=== PATIENT | male | born 1940 | race Caucasian/White ===

== ENCOUNTER 2016-09-04 17:57 | Inpatient (IN) | payer MEDICARE, OTHER ==
[2016-09-04] MEDS ORDERED: NS 0.9% 1000 ML* 3,000 ML IV ONE (18:28)
[2016-09-04 18:35] LABS: Hematocrit 35 % (42-52); Hemoglobin 11.4 g/dl (14.0-18.0); Mean Corpuscular HGB Conc 33 g/dl (31-36); Mean Corpuscular Hemoglobin 30 pg (27-31); Mean Corpuscular Volume 93 fL (80-94); Mean Platelet Volume 9 um3 (7.4-10.4); Red Cell Distribution Width 16 % (10.5-15)
[2016-09-04 18:56] LABS: Albumin 3.7 g/dL (3.2-5.2); BUN/Creatinine Ratio 26.4 (8-20); Calcium 8.9 mg/dL (8.6-10.3); EGFR African American 104.2 (>60); Globulin 3.1 g/dL (2-4); Potassium 4.2 mmol/L (3.5-5.0); Total Bilirubin 1.1 mg/dL (0.2-1.0); Total Protein 6.8 g/dL (6.4-8.9)
[2016-09-04 18:57] LABS: Troponin I 0.03 ng/mL (<0.04)
--- NOTE | 2016-09-04 19:24 | RAD ---
Indication: Shortness of breath, cough, question pneumonia. History of cardiac disease with previous bypass and ablation. History of bronchitis. Comparison: July 01, 2016 Technique: Upright AP 1858 hours Report: Chronic moderate elevation of the RIGHT hemidiaphragm with associated basilar atelectasis. Mild prominence of the interstitial markings. Probable small pleural effusions. Negative for pneumothorax. Median sternotomy wires, mediastinal vascular clips, RIGHT atrial and RIGHT ventricular level pacemaker leads. Cardiomegaly. Prominent ill-defined central pulmonary vasculature. IMPRESSION: The constellation of findings is most consistent with pulmonary vascular congestion and interstitial edema. Probable small associated pleural effusions.
[2016-09-04 19:47] LABS: C Reactive Protein 184.48 mg/L (< 5.00)
[2016-09-04] MEDS ORDERED: Bumetanide IV* 0.25 MG/ML 4 ML VIAL SLOW PUSH ONE (20:16)
[2016-09-04] MEDS ORDERED: Aspirin Low Dose CHEW TAB* 81 MG PO ONE (20:17)
--- NOTE | 2016-09-04 21:03 | ED ---
Neil Rg Erika, scribed for Santiago Kyle MD on 09/04/16 at 1903 . Shortness of Breath - HPI Summary HPI Summary: Patient is a 76-year-old male presenting to the ED with a CC of SOB. Patient reports that a successful cardiac ablation for ventricular tachycardia in May 2016 at [facility]. He reports he has had the SOB since then, and that it has gradually worsened. SOB later became aggravated by exertion. He does not note orthopnea. Patient also reports a decreased appetite for the past 3 months. He states he was recently treated for bronchitis with doxycycline for 10 days after he had the SOB associated with chest tightness, but he currently does not have the chest tightness. He states he has been able to cough up some phlegm. Pt denies abdominal pain and pedal edema, and notes diaphoresis and nasal discharge unchanged from baseline. Pt also reports an ejection fracture of 25%. He states he has a cardiac pacemaker and defibrillator - has not fired since the ablation. He states he does not use home O2. He denies Hx COPD, sleep apnea. Hx diabetes, HTN, cardiomyopathy. Denies Hx hyperlipidemia. He reports Hx CABG 1993 and cardiac catheterization in 2016. He denies FHx CHF. Pt is a former smoker - quit 40+ years ago, and states he does not drink. - History of Current Complaint Chief Complaint: EDShortnessOfBreath Hx Obtained From: Patient Onset/Duration: Gradual Onset, Lasting Weeks, Worse Since Timing: Constant Current Severity: Moderate Dyspnea At: Exertion Alleviating Factors: Nothing Associated Signs & Symptoms: Cough (Productive) - Allergy/Home Medications Allergies/Adverse Reactions: Allergies Allergy/AdvReac Type Severity Reaction Status Date / Time Acetaminophen [From Excedrin] AdvReac Unknown Verified 09/04/16 18:18 Reaction Details Aspirin [From Excedrin] AdvReac Unknown Verified 09/04/16 18:18 Reaction Details Atorvastatin [From Lipitor] AdvReac Unknown Verified 09/04/16 19:28 Reaction Details Caffeine [From Excedrin] AdvReac Unknown Verified 09/04/16 18:18 Reaction Details Charcoal AdvReac Unknown Verified 09/04/16 19:28 Reaction Details Insulin AdvReac See Comment Verified 09/04/16 18:18 Lisinopril AdvReac Unknown Verified 09/04/16 19:28 Reaction Details Home Medications: Home Medications Amoxicillin/Clavulanate TAB* [Augmentin TAB 875*] 875 mg PO BID 09/04/16 [ History Confirmed 09/04/16] Metoprolol Succinate XL TAB* [Toprol XL TAB*] 100 mg PO DAILY 09/04/16 [History Confirmed 09/04/16] Multivitamins/Minerals TAB* [Theragran/minerals TAB*] 1 tab PO DAILY 09/04/16 [ History Confirmed 09/04/16] Potassium Chloride [K-Tab] 8 meq PO DAILY 09/04/16 [History Confirmed 09/04/16] metFORMIN* [Glucophage*] 500 mg PO QAM 09/04/16 [History Confirmed 09/04/16] PMH/Surg Hx/FS Hx/Imm Hx Endocrine/Hematology History: Reports: Hx Diabetes, Hx Thyroid Disease - hypothyroidism Cardiovascular History: Reports: Hx Angina, Hx Atrial Fibrillation, Hx Auto Implanted Cardiovert Defib, Hx Coronary Artery Disease, Hx Hypercholesterolemia , Hx Pacemaker/ICD, Other Cardiovascular Problems/Disorders - Cardiomyopathy, V tach Denies: Hx Hypertension Respiratory History: Denies: Hx Asthma, Hx Chronic Obstructive Pulmonary Disease (COPD) Sensory History: Reports: Hx Contacts or Glasses, Hx Hearing Problem Opthamlomology History: Reports: Hx Contacts or Glasses Psychiatric History: Reports: Hx Anxiety, Hx Post Traumatic Stress Disorder - Surgical History Surgery Procedure, Year, and Place: CABG at age 54, internal defibrillator 2009 Hx Anesthesia Reactions: No Infectious Disease History: No Infectious Disease History: Denies: Hx Clostridium Difficile, Hx Hepatitis, Hx Human Immunodeficiency Virus (HIV), Hx of Known/Suspected MRSA, Hx Shingles, Hx Tuberculosis, History Other Infectious Disease, Traveled Outside the [place] in Last 30 Days - Family History Known Family History: Positive: Cardiac Disease, Hypertension, Diabetes - Social History Alcohol Use: None Hx Substance Use: No Substance Use Type: Reports: None Hx Tobacco Use: Yes Smoking Status (MU): Former Smoker Review of Systems Positive: Skin Diaphoresis - baseline Positive: Nasal Discharge - baseline Positive: Shortness Of Breath, Cough - phlegm Positive: Other - decreased appetite. Negative: Abdominal Pain Negative: Edema All Other Systems Reviewed And Are Negative: Yes Physical Exam - Summary Physical Exam Summary: The patient is well-nourished in no acute distress and in no acute pain. The skin is warm and dry and skin color reflects adequate perfusion. Skin turgor is slightly decreased. HEENT: The head is normocephalic and atraumatic. The pupils are equal and reactive. The conjunctivae are clear and without drainage. Nares are patent and without drainage. Mouth reveals dry mucous membranes and the throat is without erythema and exudate. The external ears are intact. The ear canals are patent and without drainage. The tympanic membranes are intact. Neck is supple with full range of motion and non-tender. There are no carotid bruits. There is no neck vein distension. Respiratory: Chest is non-tender. There are crackles in the left base and diminished breath sounds in the right base. Cardiovascular: Heart is regular rate and rhythm. There is no murmur or rub auscultated. There is no peripheral edema and pulses are symmetrical and equal. Abdomen: The abdomen is soft and non-tender. There are normal bowel sounds heard in all four quadrants and there is no organomegaly palpated. Musculoskeletal: There is no back pain noted. Extremities are non-tender with full range of motion. There is good capillary refill. There is no peripheral edema or calf tenderness elicited. Neurological: Patient is alert and oriented to person, place and time. The patient has symmetrical motor strength in all four extremities. Cranial nerves are grossly intact. Psychiatric: The patient has an appropriate affect and does not exhibit any anxiety or depression. Triage Information Reviewed: Yes Vital Signs On Initial Exam: Initial Vitals Temp Pulse Resp BP Pulse Ox 98.6 F 60 16 141/77 97 09/04/16 18:15 09/04/16 18:15 09/04/16 18:15 09/04/16 18:15 09/04/16 18:15 Vital Signs Reviewed: Yes Diagnostics - Vital Signs Vital Signs Temp Pulse Resp BP Pulse Ox 09/04/16 18:15 98.6 F 60 16 141/77 97 - Laboratory Lab Results: Lab Results 09/04/16 Range/Units 18:25 WBC 13.0 H (3.5-10.8) 10^3/ul RBC 3.80 L (4.0-5.4) 10^6/ul Hgb 11.4 L (14.0-18.0) g/dl Hct 35 L (42-52) % MCV 93 (80-94) fL MCH 30 (27-31) pg MCHC 33 (31-36) g/dl RDW 16 H (10.5-15) % Plt Count 272 (150-450) 10^3/ul MPV 9 (7.4-10.4) um3 Neut % (Auto) 86.9 H (38-83) % Lymph % (Auto) 3.2 L (25-47) % Kemper % (Auto) 9.4 H (1-9) % Eos % (Auto) 0.1 (0-6) % Baso % (Auto) 0.4 (0-2) % Absolute Neuts (auto) 11.3 H (1.5-7.7) 10^3/ul Absolute Lymphs (auto) 0.4 L (1.0-4.8) 10^3/ul Absolute Monos (auto) 1.2 H (0-0.8) 10^3/ul Absolute Eos (auto) 0 (0-0.6) 10^3/ul Absolute Basos (auto) 0.1 (0-0.2) 10^3/ul Absolute Nucleated RBC 0.01 10^3/ul Nucleated RBC % 0 Result Diagrams: 09/04/16 18:25 09/04/16 18:25 Lab Statement: Any lab studies that have been ordered have been reviewed, and results considered in the medical decision making process. - Radiology CXR Radiology Interpretation Completed By: Radiologist - IMPRESSION: The constellation of findings is most consistent with pulmonary vascular congestion and interstitial edema. Probable small associated pleural effusions. - EKG 18:15 EKG Interpretation: Paced at 60 bpm Re-Evaluation - Re-Evaluation First Eval Re-Evaluation Time: 20:18 Comment: Discussed lab results and imaging with patient, and discussed admission Course/Dx - Course Course Of Treatment: Upon exam at 18:40, pt notifies us of reduced ejection fracture. We will hold IV fluids at this time. Assessment/Plan: A 76 y/o M presents with SOB for months. He was treated with Abx for bronchitis however did not improve. He has a cough and denies weight gain. He also complains of chest tightness. He had an ablation in [place] in May of 2016 for ventricular tachycardia. He has a pacemaker and defibrillator in place. He is s/p CABG in 1993. He has a low ejection fraction. He denies fever or chills. He states he trialed his wifes O2 at home but this did not improve his SOB. He had rales in the base, no pitting edema. CXR was consistent with pulmonary edema. He had an elevated BNP of 2078. His troponin was 0.03. He had elevated transaminases. This is consistent with CHF. He was placed on O2, and will be given 2 mg of Bumex. Care discussed with Dr. Main who accepts pt for admission. - Diagnoses Differential Diagnosis/HQI/PQRI: Positive: Bronchitis, CHF, IL, Pneumonia, Pulmonary Edema Provider Diagnoses: Acute dyspnea, Acute pulmonary edema, Elevated transaminase level - Physician Notifications Discussed Care of Patient With: Dr. Main (hospitalist) at 20:26 - agrees to admit Discharge - Discharge Plan Condition: Stable Disposition: ADMITTED TO [facility] Referrals: Mik Maurer MD [Primary Care Provider] - The documentation as recorded by the Neil wagoner Erika accurately reflects the service I personally performed and the decisions made by , Santiago Kyle MD.
[2016-09-04] MEDS ORDERED: Phytonadione Oral Solution* 5 MG/25 ML UDC PO ONE (21:49)
[2016-09-04] MEDS ORDERED: Dextrose 50% Syringe 50 ML* 25 GM/50 ML SYRINGE IV PUSH PRN (21:49)
[2016-09-04] MEDS ORDERED: Iodixanol* (CONTRAST) 320 MG/ML 100 ML SDV IV ONE (21:58)
[2016-09-04 22:30] LABS: T4 6.75 g/dL (6.09-12.23)
[2016-09-04] MEDS ORDERED: Azithromycin IV(*) 500 MG in NS 0.9% 250 ML* 250 ML IVPB SCH (22:30)
[2016-09-04 22:31] LABS: TSH (Thyroid Stimulating Horm) 7.84 mcIU/mL (0.34-5.60)
[2016-09-04 22:32] LABS: Urine Bacteria Absent (Absent); Urine Bilirubin Negative (Negative); Urine Glucose Negative (Negative); Urine Nitrite Negative (Negative)
[2016-09-04 22:35] LABS: Free T3 2.1 pg/mL (2.5-3.9); Free T4 1.35 ng/dL (0.61-1.12)
[2016-09-04 22:39] LABS: Total T3 0.4 ng/mL (0.87-1.78)
[2016-09-05] MEDS: Azithromycin IV(*) 500 MG in NS 0.9% 250 ML* 250 ML IVPB SCH ×2 (00:13→22:26)
[2016-09-05] MEDS: cefTRIAXone VIAL(*) 1,000 MG in NS 0.9% 50 ML* 50 ML IVPB SCH ×2 (01:43→23:41)
--- NOTE | 2016-09-05 02:07 | HP ---
HISTORY AND PHYSICAL: DATE OF ADMISSION: 09/04/16 PRIMARY CARE PROVIDER: Dr. Maurer. CONSULTING INSPECTION SUPERVISOR: Dr. Santoro. ATTENDING PHYSICIAN WHILE IN THE HOSPITAL: Maxim Main MD* (report being dictated by Romero Ruff NP). CHIEF COMPLAINT: 1. Cough. 2. Shortness of breath. HISTORY OF PRESENT ILLNESS: Mr. Carmichael is a 76-year-old male patient, who has a history of ischemic cardiomyopathy, EF of 25%, coronary artery disease, GERD, history of ventricular tachycardia, question of ROSALIA, history of AR, diabetes, hypertension, hyperlipidemia, hypothyroidism. He comes in today, states that he has not been feeling well for pretty much the last couple of months. He recently was here in the middle of the month, states that he was put on a new antiarrhythmic. In addition, there is also an increase in his previous antiarrhythmic. He states since then, he has noticed that he has had this feeling of having something in his throat that he cannot cough up. He has been feeling somewhat more short of breath in the last couple of months off and on but he has noticed in the last few weeks, he has gotten progressively worse, particularly with exertion. He denies any orthopnea. No weight gain. States he has been taking his medications as prescribed, and he states he has been feeling nauseous and feeling at times has been choking on his phlegm. He does state that he recently went to his primary about a week ago, there was concern for possible upper respiratory infection, he was started on Augmentin. He states that the Augmentin did upset his stomach. He noticed that since being on that, he is feeling nauseated, he was not having any diarrhea though. Denied having any fever. Denied having any weight change. No chest pain, no orthopnea or dyspnea on exertion. He was concerned today though because it was not getting any better, so he decided to come into the ER. He was evaluated here and it was noted that his LFT's were elevated, his BMP was elevated, his CRP was elevated, and chest x-ray was concerning for possible CHF, so hospitalist was asked to evaluate for admission. His INR was elevated as well in the setting of elevated LFT's. PAST MEDICAL HISTORY: Significant for; 1. Ischemic cardiomyopathy, EF 25%. 2. CAD. 3. GERD. 4. AR. 5. V-tach. 6. ROSALIA questionable. 7. Diabetes. 8. Hypertension. 9. Hyperlipidemia. 10. Hypothyroidism. PAST SURGICAL HISTORY: 1. He is on ICD placement. 2. VT ablation. 3. CABG. 4. Cardiac catheterizations. HOME MEDICATIONS: His home medications according to the list that he gave us include; 1. Synthroid 25 mcg daily. 2. Saw palmetto 450 mg p.o. b.i.d. 3. Aspirin 81 mg a day. 4. Metformin 500 mg p.o. daily. 5. Lasix 20 mg a day. 6. Multivitamin 1 tablet daily. 7. Potassium 8 mEq p.o. daily. 8. Losartan 160 mg p.o. daily. 9. Amiodarone 400 mg p.o. daily. 10. Toprol-XL 100 mg daily. 11. Mexiletine 150 mg p.o. b.i.d. 12. Celexa 20 mg p.o. daily. 13. Augmentin 875 mg p.o. b.i.d. ALLERGIES TO MEDICATIONS: Include TYLENOL, ASPIRIN, LIPITOR, CAFFEINE, CHARCOAL. He is sensitive to insulin and he has a history of being allergic to LISINOPRIL. FAMILY HISTORY: Both his parents had coronary artery disease. SOCIAL HISTORY: He does not smoke, does not drink. His surrogate decision maker is his . REVIEW OF SYSTEMS: There is no documented fever. He denied any significant weight change. There was no double vision. He denies having any ear discharge. He denies having any rhinorrhea. He does admit to having a cough that has been nonproductive. He denies having any sore throat. No chest pain, no orthopnea, no nocturnal dyspnea. There has been no abdominal pain, but there has been nausea, but no vomiting. No dysuria, no frequency, no loss of consciousness. No pruritus. No skin ulceration. Review of 14 systems completed , all others negative. PHYSICAL EXAMINATION GENERAL: At this time, Mr. Carmichael is a 76-year-old male patient, he is chronically ill appearing, he does not appear to be in any acute distress. He is sitting in the ER stretcher. VITAL SIGNS: Blood pressure of 120/97, pulse 66, respirations 18, O2 sat 99% on 2 L, temperature 97.9. O2 sat on room air was 89% but now on 2 L 99%. HEENT: Head: Atraumatic, normocephalic. Eyes: EOMs are intact. Sclerae anicteric and not pale. Throat: Oral mucosa appears to be moist. No oropharyngeal erythema NECK: Supple. HEART: Sounds S1, S2. Regular rate and rhythm. No murmurs, rubs, or gallops. LUNGS: They are diminished in the bases, but I do not appreciate any rhonchi or crackles. He had equal diaphragmatic excursion. No wheezes. ABDOMEN: His abdomen is soft, flat, nontender. No hepatomegaly or splenomegaly is felt. EXTREMITIES: Pulses were 2+ throughout. He had no peripheral edema. He is able to move all 4 extremities with 5/5 strength. NEUROLOGICAL: The patient is awake, he is alert, he is oriented x3 and no gross focal deficits. SKIN: Intact. DIAGNOSTIC STUDIES/LAB DATA: Today revealed WBC of 13.0, RBC of 3.80, hemoglobin of 11.4, hematocrit 35, platelet count 272. INR 1.73, PTT 27.4. Sodium 129, potassium 4.2, chloride 97, bicarb 24, BUN 24, creatinine 0.91, glucose 199, lactic 2.3, calcium 8.9. Total bili 1.1, AST 651, ALT 551, troponin 0.03, alk-phos 84, CRP 184.4, BNP 2078, albumin is 3.7. He did have an EKG obtained today, which shows a ventricular paced rhythm at a rate of 60. He had a chest x-ray obtained today, when I reviewed it, it does appear that he has some increased pulmonary vascular congestion. Radiology read it as constellation of findings most consistent with pulmonary vascular congestion, interstitial edema, probable small pleural associated effusions. Old medical records reviewed. ASSESSMENT AND PLAN: Mr. Carmichael is a 76-year-old male patient with a complex medical history, coming into the ER today, stating that over the last couple of months, he has been progressively not feeling well. In addition to this, he has had progressive worsening shortness of breath, particularly in the last couple of weeks. Evaluation in the ER today, it was noted that he had several lab abnormalities and the hospitalist service was asked to evaluate for concern of possible congestive heart failure. He will be admitted under inpatient status for: 1. Elevated LFT's. Etiology of this is unclear. Could certainly be related to his antiarrhythmics. I did touch base with Dr. Ryan, who is in agreement it could be, and he said that it would be okay to go ahead and stop his antiarrhythmics for tonight and be evaluated first thing in the morning by Cardiology to see if these needed to be titrated back. I do note that both antiarrhythmics can cause this. In addition to this, Augmentin can cause a transient elevation but it seems that the 2 antiarrhythmics, particularly the amiodarone and the mexiletine both can contribute to the symptoms that he has been having. I will repeat the LFT's and get an ultrasound of the abdomen in addition to this, I will go ahead and give him some vitamin K for his coagulopathy, probably secondary to the liver dysfunction. In addition to this , we will get a hepatitis panel, as he did report that he ate at [employer] a few weeks ago. Should no clear etiology be found, then obviously we will go ahead and get input from our gastroenterology group. 2. Shortness of breath. Again, etiology unclear. Amiodarone certainly could be contributing to this as it can cause pulmonary toxicity. I am going to get a CTA of the chest, I am not convinced that this is a congestive heart failure exacerbation. He was treated down here in the ER, I am going to go ahead and put him on antibiotics in the form of Rocephin and azithromycin. We will get legionella and strep pneumo antigens, flu swab as well as viral, and this could be contributing to the LFT's and we will galvez culture him and will continue to monitor and try to get sputum cultures if possible. 3. Ischemic cardiomyopathy. We will continue meds as prescribed. He is on a ARB, because he cannot tolerate CEDRIC inhibitors, we will continue this, we will diurese him as needed. We will continue to follow and we will continue his beta blockade. 4. Coronary artery disease. He is on an aspirin, beta lexx. We will continue. He is allergic to STATIN. 5. Gastroesophageal reflux disease. Continue meds as prescribed. 6. History of ventricular tachycardia. Again, holding his antiarrhythmics as this may be causing elevated LFT's and possible hepatic failure given the elevated INR. We will continue his beta-lexx. He does have an ICD placed and we will place him on telemetry and follow. 7. History of diabetes. I will put him on insulin sliding scale, but a low dose as he is sensitive. 8. Hypertension. Continue meds as prescribed. 9. Hyperlipidemia. Continue current medical regimen. 10. Hypothyroidism. I am repeating his thyroid function tests as amiodarone toxicity can worsen this. We will treat as needed. 11. Code status. He wishes to be a full code. 12. Fluids, electrolytes, nutrition. He can have a heart healthy diet. 13. DVT prophylaxis. Again, his INR is 1.7, so I am just going to go ahead and put him on SCD's for the time being. We will hold off on any heparin. TIME SPENT: Time spent on this admission was 70 minutes, greater than half the time was spent [id number] with the patient, obtaining my history and physical , the other half time was spent going over the plan of care with the patient and implementing my plan of care. I did discuss the plan of care with my attending, Dr. Main; he is in agreement. ROMERO RUFF NP CC: Dr. Maurer; Dr. Santoro; Dr. Ryan* [id number]/[facility] #: [id number] MTDNick
[2016-09-05] MEDS: Levothyroxine TAB* 25 MCG TAB PO SCH (05:06)
[2016-09-05 05:39] LABS: Urine Bilirubin Negative (Negative); Urine Glucose Negative (Negative); Urine Nitrite Negative (Negative)
[2016-09-05 06:03] LABS: Albumin 3.5 g/dL (3.2-5.2); BUN/Creatinine Ratio 21.7 (8-20); Calcium 8.6 mg/dL (8.6-10.3); Direct Bilirubin 0.4 mg/dL (0.03-0.18); EGFR African American 102.9 (>60); Indirect Bilirubin 0.4 mg/dL (0.3-1.0); Potassium 3.2 mmol/L (3.5-5.0); Total Bilirubin 0.8 mg/dL (0.2-1.0); Total Protein 6.5 g/dL (6.4-8.9)
--- NOTE | 2016-09-05 07:38 | RAD ---
INDICATION: Elevated liver function studies COMPARISON: None TECHNIQUE: Longitudinal and transverse scans of the abdomen were obtained. Doppler interrogation of the hepatic and portal venous system was performed. FINDINGS: Liver: The liver is echogenic and at the upper range of normal in size suggesting hepatic steatosis. The liver measures 18 cm in cephalocaudal dimension. Vessels: There is normal hepatic and portal venous flow. Bile ducts: There is no evidence of intrahepatic or extrahepatic ductal dilatation. The common duct measures 0.3 cm. Gallbladder: The sonographic appearance of the gallbladder is normal. There is no evidence of cholelithiasis, thickening of the gallbladder wall, or pericholecystic fluid. Pancreas: The visualized portions of the pancreas are normal Spleen:The spleen is at the upper limits of normal in size measuring 11.8 x 4.8 x 0.5 cm. There are no focal masses. Kidneys: The kidneys are normal in size and echogenicity. There is Cyst in the midpole left kidney measuring 11.7 x 5.2 x 5.8 cm. There is no evidence of hydronephrosis. The right kidney measures 13.0 x 6.5 x 5.6 cm and the left kidney measures 13.0 x 5.2 x 4.0 cm. IVC and aorta: The aorta and superior vena cava appear normal. Fluid: There is no ascites. Other: None. IMPRESSION: 1. Both liver and spleen at the upper limits of normal in size and there is mild hepatic steatosis. 2. Large left renal cyst
--- NOTE | 2016-09-05 08:05 | RAD ---
INDICATION: Chest pain. Short of breath. Evaluate for pulmonary embolus. COMPARISON: Chest x-ray September 04, 2016 TECHNIQUE: Axial source images were obtained from the thoracic inlet to the hemidiaphragms following administration of [address] angiographic technique was utilized. Coronal and sagittal reconstructed images were acquired. CHEST FINDINGS: Neck/thyroid: The visualized neck to include the thyroid appear normal. Chest wall: There are no acute abnormalities of the bony thorax or chest wall. There is sternotomy and left-sided pacemaker producing artifact. There is no supraclavicular, infraclavicular, or axillary lymphadenopathy. Lungs : The patchy bilateral upper and lower lobe infiltrates most consistent with an acute pneumonitis. Some interstitial change may be related to interstitial edema There are no endobronchial lesions. Cardiomediastinal structures: There is no CT evidence of acute pulmonary embolic disease. The heart is mildly increased in size. There is no pericardial effusion. There is no evidence of aortic aneurysm or dissection. There is no mediastinal or hilar adenopathy. The esophagus appears normal. Pleura : There are no pleural-based masses or effusions. Other: Limited views the upper abdomen show a large left renal cyst. IMPRESSION: 1. No CT evidence of acute pulmonary embolic disease. 2. Patchy bilateral infiltrates most consistent with acute pneumonitis. There may be a component of interstitial congestion. Suggest follow-up chest x-ray.
[2016-09-05] MEDS: Insulin LISPRO* 1 UNITS UNIT SUBCUT SCH ×3 (08:43→17:22)
[2016-09-05] MEDS: Metoprolol Succinate XL TAB* 100 MG PO SCH (08:43)
[2016-09-05] MEDS: Aspirin EC Low Dose* 81 MG TAB.EC PO SCH (08:43)
[2016-09-05] MEDS: Citalopram TAB* 20 MG PO SCH (08:43)
[2016-09-05] MEDS: Furosemide TAB* 20 MG PO SCH (08:43)
[2016-09-05] MEDS: Potassium Chlor TAB* 10 MEQ TAB.ER PO SCH (08:43)
[2016-09-05] MEDS: Valsartan TAB* 160 MG PO SCH (08:43)
[2016-09-05 10:31] LABS: Hematocrit 33 % (42-52); Hemoglobin 10.9 g/dl (14.0-18.0); Mean Corpuscular HGB Conc 33 g/dl (31-36); Mean Corpuscular Hemoglobin 30 pg (27-31); Mean Corpuscular Volume 93 fL (80-94); Mean Platelet Volume 9 um3 (7.4-10.4); Red Blood Count 3.58 10^6/ul (4.0-5.4); Red Cell Distribution Width 15 % (10.5-15); White Blood Count 12.6 10^3/ul (3.5-10.8)
[2016-09-05] MEDS ORDERED: Amiodarone TAB* 400 MG PO ONE (12:36)
[2016-09-05] MEDS ORDERED: Amiodarone TAB* 200 MG PO ONE (13:16)
[2016-09-05] MEDS ORDERED: Potassium Chlor TAB* 20 MEQ TAB.ER PO ONE (15:01)
--- NOTE | 2016-09-05 15:10 | PN ---
Subjective Date of Service: 09/05/16 Interval History: pt feels better today. c/o cough ever since his ablation procedure inn 2015. that had been gradually worsening. No fevers. On Augmentin x 6 days. Had had epigsatric discomfort and occasional vomiting when on it. Objective Active Medications: Amiodarone HCl (Cordarone Tab*) 200 mg PO DAILY [facility] Aspirin (Aspirin Ec Low Dose*) 81 mg PO DAILY [facility] Last Admin: 09/05/16 08:43 Dose: 81 mg Citalopram Hydrobromide (Celexa Tab*) 20 mg PO DAILY [facility] Last Admin: 09/05/16 08:43 Dose: 20 mg Dextrose (D50w Syringe 50 Ml*) 12.5 gm IV PUSH .FOR FS < 60 - SS PRN PRN Reason: FS < 60 Furosemide (Lasix Tab*) 20 mg PO DAILY [facility] Last Admin: 09/05/16 08:43 Dose: 20 mg Ceftriaxone Sodium 1,000 mg/ (Sodium Chloride) 50 mls @ 200 mls/hr IVPB Q24H [facility] Last Admin: 09/05/16 01:43 Dose: 200 mls/hr Azithromycin 500 mg/ Sodium (Chloride) 250 mls @ 250 mls/hr IVPB 2300 [facility] Last Admin: 09/05/16 00:13 Dose: 250 mls/hr Insulin Human Lispro (Humalog*) 0 units SUBCUT AC [facility] PRN Reason: Protocol Last Admin: 09/05/16 13:02 Dose: 2 unit Levothyroxine Sodium (Synthroid Tab*) 25 mcg PO DAILY@0600 [facility] Last Admin: 09/05/16 05:06 Dose: 25 mcg Metoprolol Succinate (Toprol Xl Tab*) 100 mg PO DAILY [facility] Last Admin: 09/05/16 08:43 Dose: 100 mg Mexiletine HCl (Mexitil Cap*) 150 mg PO BID [facility] Potassium Chloride (Klor Con Er Tab*) 10 meq PO DAILY WITH MEAL [facility] Last Admin: 09/05/16 08:43 Dose: 10 meq Valsartan (Diovan Tab*) 160 mg PO DAILY [facility] Last Admin: 09/05/16 08:43 Dose: 160 mg Vital Signs 09/04/16 09/04/16 09/04/16 21:49 22:00 22:30 Temperature 98.3 F Pulse Rate 74 84 66 Respiratory 18 21 20 Rate Blood Pressure 130/67 154/75 142/80 (mmHg) O2 Sat by Pulse 87 89 99 Oximetry 09/04/16 09/04/16 09/05/16 23:00 23:43 00:41 Temperature 98.3 F Pulse Rate 63 60 74 Respiratory 22 18 Rate Blood Pressure 152/79 130/67 (mmHg) O2 Sat by Pulse 100 98 87 Oximetry 09/05/16 09/05/16 09/05/16 03:38 04:41 08:00 Temperature 97.4 F 97.4 F Pulse Rate 60 60 Respiratory 20 20 18 Rate Blood Pressure 141/74 141/74 (mmHg) O2 Sat by Pulse 99 99 97 Oximetry 09/05/16 09/05/16 08:15 11:24 Temperature 98.2 F 98.3 F Pulse Rate 59 52 Respiratory 16 16 Rate Blood Pressure 134/63 118/54 (mmHg) O2 Sat by Pulse 97 96 Oximetry Result Diagrams: 09/05/16 10:26 09/05/16 05:33 Additional Lab and Data: Lab Results 09/04/16 Range/Units 18:25 WBC 13.0 H (3.5-10.8) 10^3/ul RBC 3.80 L (4.0-5.4) 10^6/ul Hgb 11.4 L (14.0-18.0) g/dl Hct 35 L (42-52) % MCV 93 (80-94) fL MCH 30 (27-31) pg MCHC 33 (31-36) g/dl RDW 16 H (10.5-15) % Plt Count 272 (150-450) 10^3/ul MPV 9 (7.4-10.4) um3 Neut % (Auto) 86.9 H (38-83) % Lymph % (Auto) 3.2 L (25-47) % Swain % (Auto) 9.4 H (1-9) % Eos % (Auto) 0.1 (0-6) % Baso % (Auto) 0.4 (0-2) % Absolute Neuts (auto) 11.3 H (1.5-7.7) 10^3/ul Absolute Lymphs (auto) 0.4 L (1.0-4.8) 10^3/ul Absolute Monos (auto) 1.2 H (0-0.8) 10^3/ul Absolute Eos (auto) 0 (0-0.6) 10^3/ul Absolute Basos (auto) 0.1 (0-0.2) 10^3/ul Absolute Nucleated RBC 0.01 10^3/ul Nucleated RBC % 0 Microbiology and Other Data: Microbiology 09/05/16 05:10 Legionella Urinary Antigen - Final Urine Negative Legionella Streptococcus pneumoniae Ag Screen - Final Negative S. pneumo Antigen 09/04/16 23:05 Influenza Types A,B Antigen (ERWIN) - Final Nasal Specimen received for Influenza A/B Molecular testing Assess/Plan/Problems-Billing Assessment: 76 yo with severe ischemic CM, ICD, s/p VT ablation 06/14/16 presented with SOB and cough x several weeks. Was tx with Augmentin x 6 days prior to admission. CT shows b/l pneumonia/pneumonitis - Patient Problems (1) Pneumonia Comment: b/l , community acquired Sepsis criteria met at admission. cont Ceftriaxone/Azithro Legionella and strep pneumo antigen neg (2) Transaminitis Comment: mild , resolving. US shows mild hepatic steatosis and large renal cyst spoke with Dr. Santoro: Amiodarone and Mexiletine less likely as etiology since LFT's are improving quickly without marked med adjustment. will lower amiodarone dose from 200 BID to 200 daily as recommended per cardiology suspect due to Augumentin vs infection alone will monitor (3) Ventricular arrhythmia Comment: h/o s/p ablation in 05/2016 cont Amiodarone on lower dose-appreciate Dr. Santoro's consult cont Mexiletine (4) DM2 (diabetes mellitus, type 2) Comment: holding metformin, cont ISS (5) Chronic systolic CHF (congestive heart failure) Comment: with EF reported in the past at 25% Today appears euvolemic Baseline wt of 244-245 lbs cont daily weights and at home diuretics (6) Abnormal INR Comment: elevated. Tx with vit K on 09/04/16, will f/u in aM suspect nutritional component (7) Hypothyroidism Comment: TSH continues to be high. will increase the dose of Synthroid by 12.5 mcg to a total dose of 37.5 mcg daily (8) DVT prophylaxis Comment: heparin sc Status and Disposition: inpatient for b/l pneumonia
--- NOTE | 2016-09-05 16:41 | ECHO ---
Patient: [facility] Rec#: [id number] : 1940 Date: 09/05/2016 Age: 76y Height: 182.88 cm / 72.0 in Weight: 109.77 kg / 241.9 lbs Sex: M BSA: 2.3 Room#: 441 Admit Date#: 09/04/2016 Type: Inpatient Referring: Romero Ruff NP Reading: Maged Loza MD [employer]: Estella Jaramillo RN RDCS CC: Mik Maurer MD Transthoracic Echocardiogram Indication: CHF BP: 141/74 HR: 63 Rhythm: Paced Findings History: CAD, CABG, ischemic cardiomyopathy, HI, V. Tach, VT ablation, AICD placement, DM, HTN, HLD, thyroid disease, GERD, possible ROSALIA Technical Comments: The study is technically limited due to poor acoustic windows. The study is technically limited due to patient body habitus. Left Ventricle: The left ventricular chamber size is moderately dilated. There are multiple regional wall motion abnormalities. There is severely decreased left ventricular systolic function. The estimated ejection fraction is 20-25%. There is no consistent Doppler evidence of clinically significant diastolic dysfunction. Left Atrium: The left atrium is moderately dilated. Right Ventricle: The right ventricle is mildly dilated. The right ventricular global systolic function is moderately reduced. A pacemaker wire is visualized in the right ventricle. Right Atrium: The right atrium is mild to moderately dilated. A pacemaker wire is visualized in the right atrium. Aortic Valve: The aortic valve is trileaflet. The aortic valve leaflets are mildly thickened. There is a trace of aortic regurgitation. There is no evidence of aortic stenosis. Mitral Valve: The mitral valve leaflets are mildly thickened. There is mild mitral regurgitation. There is no evidence of mitral stenosis. Tricuspid Valve: The tricuspid valve leaflets are normal. There is mild to moderate tricuspid regurgitation. There is evidence of mild to moderate pulmonary hypertension. Pulmonic Valve: The pulmonic valve appears normal. There is mild pulmonic regurgitation. Pericardium: There is no significant pericardial effusion. A pericardial fat pad is visualized. Aorta: There is no dilatation of the ascending aorta. There is no dilatation of the aortic arch. There is mild dilatation of the aortic root. Pulmonary Artery: The main pulmonary artery appears normal. Venous: The inferior vena cava appears normal in size. There is less than 50% respiratory change in the inferior vena cava dimension. Conclusions The study is technically limited due to patient body habitus. The left ventricular chamber size is moderately dilated. There are multiple regional wall motion abnormalities. There is severely decreased left ventricular systolic function. The estimated ejection fraction is 20-25%. The left atrium is moderately dilated. The right ventricular global systolic function is moderately reduced. A pacemaker wire is visualized in the right ventricle. A pacemaker wire is visualized in the right atrium. The right atrium is mild to moderately dilated. There is a trace of aortic regurgitation. There is mild mitral regurgitation. There is mild to moderate tricuspid regurgitation. There is evidence of mild to moderate pulmonary hypertension. There is mild pulmonic regurgitation. No recent studies offered for comparison Measurements Name Value Normal Range RVDdMajor (2D) 4.9 cm (2.2 - 4.4) RAd ISD 4CH 5.4 cm (3.4 - 4.9) RA (A4C)W 4.2 cm (2.9 - 4.6) IVSd (2D) 1.7 cm (0.6 - 1) LVPWd (2D) 0.7 cm (0.6 - 1) LVIDd (2D) 6.5 cm (3.6 - 5.4) LVIDs (2D) 5.6 cm - LV FS (2D) 14 % (25 - 45) Aortic Annulus 2.4 cm (1.4 - 2.6) Ao root diameter (2D) 3.8 cm (2.1 - 3.5) Ascending Ao 3.1 cm (2.1 - 3.4) Aortic arch 3 cm (1.8 - 3.4) LA dimension (AP) 2D 5 cm (2.3 - 3.8) LAd ISD 4CH 5.8 cm (2.9 - 5.3) LA ISD 4CH W 4.9 cm (2.5 - 4.5) Name Value Normal Range LA ESV SP 4CH (A/L) 93 ml - LA ESV SP 2CH (A/L) 134 ml - LA ESV BP (A/L) 120 ml - LA ESV BP (A/L) index 52 ml/m2 - LA ESV SP 4CH (MOD) 89 ml - LA ESV SP 2CH (MOD) 128 ml - Name Value Normal Range MV E-wave Vmax 0.92 m/sec - MV deceleration time 132 msec - MV A-wave Vmax 0.68 m/sec - MV E:A ratio 1.4 ratio - LV septal e' Vmax 0.05 m/sec - LV lateral e' Vmax 0.08 m/sec - LV E:e' septal ratio 18.4 ratio - LV E:e' lateral ratio 11.5 ratio - Name Value Normal Range AV Vmax 1 m/sec - LVOT Vmax 0.84 m/sec - SABI Vmax 0.59 m/sec - Name Value Normal Range TR Vmax 2.9 m/sec - TR peak gradient 34 mmHg - RAP 8 mmHg - RVSP 42 mmHg - IVC diameter 1.9 cm - Name Value Normal Range PV Vmax 0.82 m/sec -
[2016-09-05] MEDS: MEXILETINE 150 MG PO SCH (20:22)
--- NOTE | 2016-09-05 20:29 | CONS ---
CARDIOLOGY CONSULTATION: DATE OF CONSULT: 09/05/16 INDICATION FOR CONSULTATION: Elevated liver function tests, shortness of breath. HISTORY OF PRESENT ILLNESS: The patient is a 76-year-old gentleman with a history of ischemic cardiomyopathy, history of severe ventricular tachycardia, history of ventricular tachycardia ablation who was admitted to the hospital because of increased shortness of breath. The patient states that for the last couple of weeks, he has had a cough that was consistent with bronchitis. He was given oral antibiotics by his primary care physician. Despite that, he continued to have some increased shortness of breath and fatigue. He decided to come to the emergency room for evaluation. In the emergency room, he was diagnosed with pneumonia based on his chest x-ray and a CT scan of his chest. He was placed on IV antibiotics. He was also noted to have an elevated BNP and was given diuretics in the emergency room. Also, he was noted to have significant elevated liver function tests. His AST and ALT were in the 600 range. Overnight, the patient had got some degree of diuresis from his medications in the emergency room. He had IV doses of IV antibiotics. In speaking with the patient today, he actually feels much better today. He feels like his shortness of breath is better. He denies any abdominal pain. He denies any nausea or vomiting. He denies any diarrhea. The question to me was whether we should stop his antiarrhythmic medications because of elevated liver function tests. PAST MEDICAL HISTORY: Significant for coronary artery disease, cardiomyopathy. He has a history of coronary bypass surgery in 1993. He had an ICD implantation in 2008. OUTPATIENT MEDICATIONS: 1. Amiodarone 200 mg b.i.d. 2. Metoprolol succinate 100 mg once a day. 3. Metformin 1000 mg tablet 1/2 tab q.a.m. 4. Aspirin 81 mg a day. 5. Multivitamin a day. 6. Citalopram 20 mg a day. 7. Levothyroxine 25 mcg a day. 8. Valsartan 160 mg once a day. 9. Furosemide 20 mg a day. 10. Mexiletine 150 mg twice a day. 11. Potassium 10 mEq every day. ALLERGIES: He is intolerant of LISINOPRIL, LIPITOR, INSULIN. SOCIAL HISTORY: He is retired. He is a previous smoker. He quit 30 years ago. Rare alcohol intake. REVIEW OF SYSTEMS: Negative for fevers and chills. Negative for change in bowel or bladder habits. Negative for change in weight. PHYSICAL EXAM: Height is 6 feet, weight 242 pounds, temperature 97.6, heart rate is 68, blood pressure 126/55, respiratory rate is 19, oxygen saturation 97 % on 2 L. Sclerae anicteric. Oropharynx is pink without erythema. Carotids are 2+ without bruits. JVD is normal. Thyroid is normal. Cardiac Exam: S1, S2 without any murmurs, rubs, or gallops. Lungs are clear to auscultation bilaterally. There is no dullness to percussion. Abdomen is obese, soft, nontender, nondistended with normoactive bowel sounds. No hepatosplenomegaly. Extremities show 1+ edema. He has 2+ pulses throughout. The patient is awake, alert, and oriented. He moves all 4 extremities equally. DIAGNOSTIC STUDIES/LAB DATA: CBC: White count 12, hemoglobin 10, hematocrit 33 , platelet count 254. Chemistries: Within normal limits. BUN 20, creatinine 0.9. AST and ALT were 651 and 551 respectively. Today, the AST is 369, ALT 495. BNP is elevated at 2078. TSH 7.8. T4 6.75. INR 1.7. EKG demonstrates ventricularly paced at 60 beats per minute. His last pacemaker interrogation on 08/07/16 demonstrated atrial paced 100% of the time, ventricularly paced 24% of the time. No episodes of nonsustained ventricular tachycardia. Elevated OptiVol index. The patient was scheduled for an office visit with me tomorrow. IMPRESSION: This is a 76-year-old gentleman with a history of ischemic cardiomyopathy who was admitted to the hospital with shortness of breath and was found to have significantly elevated LFTs. At this point, I think most of his symptoms are related to his pulmonary issues. I think he has some degree of pneumonia which is improved with his IV antibiotics. The patient has been on increased doses of antiarrhythmic medications because of his ventricular tachycardia. At my office visit tomorrow, I was going to decrease his amiodarone to 200 mg once a day. I would recommend doing that now that he is in the hospital. The patient should continue to follow his liver function tests. I will see the patient in followup after he is discharged from the hospital. I will get an ICD interrogation before that office visit to evaluate how often he is using his ventricular lead which may be contributing to some of his shortness of breath. Further recommendations pending his hospitalization. CC: Dr. Mik Maurer; Dr. Carmenza Christianson * [id number]/[facility] #: [id number] MTDD
[2016-09-05] MEDS: Heparin VIAL(*) 5000 UNITS/ML VIAL (FIVE THOUSAND) SUBCUT SCH (21:30)
[2016-09-06] MEDS: Levothyroxine TAB* 25 MCG TAB PO SCH ×2 (05:03)
[2016-09-06] MEDS: Heparin VIAL(*) 5000 UNITS/ML VIAL (FIVE THOUSAND) SUBCUT SCH ×3 (05:04→21:16)
[2016-09-06 05:22] LABS: Hematocrit 33 % (42-52); Hemoglobin 10.9 g/dl (14.0-18.0); Mean Corpuscular HGB Conc 33 g/dl (31-36); Mean Corpuscular Hemoglobin 31 pg (27-31); Mean Corpuscular Volume 93 fL (80-94); Mean Platelet Volume 9 um3 (7.4-10.4); Red Blood Count 3.52 10^6/ul (4.0-5.4); Red Cell Distribution Width 16 % (10.5-15); White Blood Count 9.1 10^3/ul (3.5-10.8)
[2016-09-06 05:38] LABS: Albumin 3.2 g/dL (3.2-5.2); BUN/Creatinine Ratio 25.8 (8-20); Calcium 8.5 mg/dL (8.6-10.3); EGFR African American 106.9 (>60); EGFR Non-African American 83.1 (>60); Globulin 2.9 g/dL (2-4); Total Bilirubin 0.7 mg/dL (0.2-1.0); Total Protein 6.1 g/dL (6.4-8.9)
[2016-09-06] MEDS ORDERED: Amiodarone TAB* 200 MG PO SCH (09:00)
[2016-09-06] MEDS: MEXILETINE 150 MG PO SCH ×2 (09:49→21:16)
[2016-09-06] MEDS: Insulin LISPRO* 1 UNITS UNIT SUBCUT SCH ×4 (09:50→18:22)
[2016-09-06] MEDS: Potassium Chlor TAB* 10 MEQ TAB.ER PO SCH (09:51)
[2016-09-06] MEDS: Aspirin EC Low Dose* 81 MG TAB.EC PO SCH (09:52)
[2016-09-06] MEDS: Amiodarone TAB* 200 MG PO SCH (09:52)
[2016-09-06] MEDS: Citalopram TAB* 20 MG PO SCH (09:52)
[2016-09-06] MEDS: Furosemide TAB* 20 MG PO SCH (09:52)
[2016-09-06] MEDS: Valsartan TAB* 160 MG PO SCH (09:53)
[2016-09-06] MEDS: Metoprolol Succinate XL TAB* 100 MG PO SCH (09:53)
[2016-09-06] MEDS ORDERED: Furosemide IV* 10 MG/ML 10 ML VIAL (100 MG) IV ONE (11:40)
--- NOTE | 2016-09-06 11:46 | PN ---
Subjective Date of Service: 09/06/16 Interval History: Patient seen this morning. Overall feels well. Denies SOB but required re- application of O2 today. Dry cough. No fever or chills. Feels appetite is coming back. Family History: Unchanged from Admission Social History: Unchanged from Admission Past Medical History: Unchanged from Admission Objective Active Medications: Amiodarone HCl (Cordarone Tab*) 200 mg PO DAILY [facility] Aspirin (Aspirin Ec Low Dose*) 81 mg PO DAILY [facility] Citalopram Hydrobromide (Celexa Tab*) 20 mg PO DAILY [facility] Dextrose (D50w Syringe 50 Ml*) 12.5 gm IV PUSH .FOR FS < 60 - SS PRN Furosemide (Lasix Tab*) 20 mg PO DAILY [facility] Heparin Sodium (Porcine) (Heparin Vial(*)) 5,000 units SUBCUT Q8HR [facility] Ceftriaxone Sodium 1,000 mg/ (Sodium Chloride) 50 mls @ 200 mls/hr IVPB Q24H [facility] Azithromycin 500 mg/ Sodium (Chloride) 250 mls @ 250 mls/hr IVPB 2300 [facility] Insulin Human Lispro (Humalog*) 0 units SUBCUT AC [facility] Levothyroxine Sodium (Synthroid Tab*) 25 mcg PO DAILY@0600 [facility] Levothyroxine Sodium (Synthroid Tab*) 12.5 mcg PO DAILY@0600 [facility] Metoprolol Succinate (Toprol Xl Tab*) 100 mg PO DAILY [facility] Mexiletine HCl (Mexitil Cap*) 150 mg PO BID [facility] Potassium Chloride (Klor Con Er Tab*) 10 meq PO DAILY WITH MEAL [facility] Valsartan (Diovan Tab*) 160 mg PO DAILY [facility] Vital Signs 09/05/16 09/05/16 09/05/16 15:20 15:38 18:06 Temperature 97.6 F Pulse Rate 68 Respiratory 19 Rate Blood Pressure 126/55 (mmHg) O2 Sat by Pulse 97 94 98 Oximetry 09/05/16 09/05/16 09/06/16 19:35 19:37 00:14 Temperature 98.2 F 98.6 F Pulse Rate 64 62 Respiratory 19 17 16 Rate Blood Pressure 134/59 133/69 (mmHg) O2 Sat by Pulse 98 94 90 Oximetry 09/06/16 09/06/16 09/06/16 04:15 07:15 08:00 Temperature 99.4 F 98.4 F Pulse Rate 61 66 Respiratory 16 16 17 Rate Blood Pressure 146/70 146/69 (mmHg) O2 Sat by Pulse 90 89 98 Oximetry 09/06/16 09/06/16 08:46 09:05 Temperature 98 F Pulse Rate 59 Respiratory 17 Rate Blood Pressure 151/69 (mmHg) O2 Sat by Pulse 98 99 Oximetry Oxygen Devices in Use Now: Nasal Cannula Appearance: Elderly, M, sitting in bed in NAD Eyes: No Scleral Icterus Ears/Nose/Mouth/Throat: Mucous Membranes Moist Neck: NL Appearance and Movements; NL JVP Respiratory: Symmetrical Chest Expansion and Respiratory Effort, - - Bibasilar rales Cardiovascular: NL Sounds; No Murmurs; No JVD, RRR Abdominal: NL Sounds; No Tenderness; No Distention Lymphatic: No Cervical Adenopathy Extremities: - - Mild LE edema Skin: No Rash or Ulcers Neurological: Alert and Oriented x 3 Result Diagrams: 09/06/16 05:00 09/06/16 05:00 Additional Lab and Data: Microbiology and Other Data: Assess/Plan/Problems-Billing Assessment: 76 yo with severe ischemic CM, ICD, s/p VT ablation 06/14/16 presented with SOB and cough x several weeks, also transaminitis. Was tx with Augmentin x 6 days prior to admission. CT shows b/l pneumonia/pneumonitis - Patient Problems (1) Pneumonia Current Visit: Yes Comment: b/l , community acquired Sepsis criteria met at admission. cont Ceftriaxone/Azithro for another day Legionella and strep pneumo antigen neg (2) Transaminitis Current Visit: Yes Comment: mild , resolving. Hepatitis panel negative US shows mild hepatic steatosis and large renal cyst spoke with Dr. Santoro: Amiodarone and Mexiletine less likely as etiology since LFT's are improving quickly without marked med adjustment. Amiodarone dose lowered from 200 BID to 200 daily as recommended per cardiology suspect due to Augumentin vs infection alone will monitor (3) Ventricular arrhythmia Current Visit: Yes Comment: h/o s/p ablation in 05/2016 cont Amiodarone on lower dose-appreciate Dr. Santoro's consult cont Mexiletine (4) Chronic systolic CHF (congestive heart failure) Current Visit: Yes Comment: with EF reported in the past at 25% May be slightly fluid overloaded. Will give additional dose of IV Lasix today, wean off O2. (5) DM2 (diabetes mellitus, type 2) Current Visit: Yes Comment: holding metformin, cont ISS but increase to moderate scale (6) Hypothyroidism Current Visit: Yes Comment: TSH continues to be high. Synthroid increased to 37.5 mcg daily (7) DVT prophylaxis Current Visit: Yes Comment: heparin sc Status and Disposition: inpatient for b/l pneumonia, hypoxemia, likely d/c 09/07
[2016-09-06] MEDS: Azithromycin IV(*) 500 MG in NS 0.9% 250 ML* 250 ML IVPB SCH (22:06)
[2016-09-07] MEDS: cefTRIAXone VIAL(*) 1,000 MG in NS 0.9% 50 ML* 50 ML IVPB SCH (00:34)
[2016-09-07] MEDS: Levothyroxine TAB* 25 MCG TAB PO SCH ×2 (05:57)
[2016-09-07] MEDS: Heparin VIAL(*) 5000 UNITS/ML VIAL (FIVE THOUSAND) SUBCUT SCH ×2 (05:57→13:20)
[2016-09-07] MEDS: Insulin LISPRO* 1 UNITS UNIT SUBCUT SCH ×2 (08:40→12:47)
[2016-09-07] MEDS: Aspirin EC Low Dose* 81 MG TAB.EC PO SCH (08:44)
[2016-09-07] MEDS: Potassium Chlor TAB* 10 MEQ TAB.ER PO SCH (08:44)
[2016-09-07] MEDS: Amiodarone TAB* 200 MG PO SCH (08:44)
[2016-09-07] MEDS: Furosemide TAB* 20 MG PO SCH (08:45)
[2016-09-07] MEDS: Citalopram TAB* 20 MG PO SCH (08:45)
[2016-09-07] MEDS: Metoprolol Succinate XL TAB* 100 MG PO SCH (08:45)
[2016-09-07] MEDS: MEXILETINE 150 MG PO SCH (08:45)
[2016-09-07] MEDS: Valsartan TAB* 160 MG PO SCH (08:45)
--- NOTE | 2016-09-07 10:05 | DCNOTE ---
Patient seen this morning. Says he feels very well. Coughed up a good amount of sputum overnight which he feels improved his breathing. No fever or chills. Has been on RA since yesterday. On exam, RRR, s1 and s2 present, mild rales in RLL field, trace LE edema. Will discharge home today to complete oral antibitoics. Will ambulate patient on RA to ensure he does not need home O2. Patient can f/u with his PCP and Patient Transporter as an outpatient.
[2016-09-07 14:04] VITALS: BP 127/69
--- NOTE | 2016-09-07 20:54 | DS ---
DISCHARGE SUMMARY: DATE OF ADMISSION: 09/04/16 DATE OF DISCHARGE: 09/07/16 PRIMARY CARE PHYSICIAN: Dr. Maurer. CARDIOLOGY: Niels Santoro MD. PRINCIPAL DISCHARGE DIAGNOSES: 1. Community-acquired pneumonia. 2. Transaminitis. 3. Mild acute on chronic systolic congestive heart failure exacerbation. SECONDARY DIAGNOSES: 1. Ischemic cardiomyopathy with EF of 25%. 2. Coronary artery disease. 3. Gastroesophageal reflux disease. 4. Myocardial infarction. 5. History of ventricular tachycardia. 6. Diabetes. 7. Hypertension. 8. Hyperlipidemia. 9. Hypothyroidism. STUDIES DONE DURING THE HOSPITALIZATION: Chest x-ray impression: The constellation of findings most consistent with pulmonary vascular congestion, interstitial edema, probable small associated pleural effusions. Abdomen ultrasound impression: Both liver and spleen at the upper limits of normal in size and there is mild hepatic steatosis, large left renal cyst. CTA of the chest: No CT evidence for acute pulmonary embolic disease, patchy bilateral infiltrates most consistent with acute pneumonitis. There may be a component of interstitial congestion. Transthoracic echocardiogram. Conclusion: The study is technically limited due to patient's body habitus. The LV size is moderately dilated. There are multiple regional wall motion abnormalities. There is severely decreased left ventricular systolic function with an EF of 20% to 25%. The left atrium is moderately dilated. The right ventricular global systolic function is moderately reduced. Pacemaker wire is visualized in the right ventricle and right atrium. Right atrium is mild to moderately dilated. There is trace aortic regurgitation. There is mild mitral regurgitation. There is mild-to- moderate tricuspid regurgitation. There is mild-to- moderate pulmonary hypertension. There is mild pulmonic regurgitation. No other studies offered for comparison. HISTORY OF PRESENT ILLNESS AND HOSPITAL COURSE: Please see the full history and physical by Romero Ruff NP, for full details. Briefly, Ms. Carmichael is a 76- year-old male with the past medical history as above who presented to the hospital with malaise over the past few months as well as cough and shortness of breath that have been getting progressively worse. The patient had some possible evidence of some fluid overload on chest x-ray; however, CTA showed some patchy infiltrates. This is felt also likely to be due to infectious cause as the patient also had leukocytosis. He was started on antibiotics. He was also noted to have transaminitis. This was thought possibly due to the patient's amiodarone; however, on further evaluation this could have been more likely due to the patient's Augmentin that was just started recently as an outpatient. The patient was evaluated by Dr. Santoro, who had already been planning on decreasing the patient's amiodarone and this was done from 200 mg twice a day to 200 mg daily. The patient's LFTs trending back down to normal. The patient was given an extra dose of Lasix in the hospital. He was continued on IV antibiotics. However, despite this he still required a small amount of oxygen as he was desaturating on ambulation and he will be sent with oxygen home on the short term, hopefully to be weaned off over the next days to weeks. The patient's Synthroid was increased while here in the hospital from 25 to 37.5 mcg daily and he should have a repeat thyroid test in 4 to 6 weeks as an outpatient. The patient felt well on the day of discharge and will complete his antibiotics orally as an outpatient. TIME SPENT: Total time spent on this discharge, 35 minutes. This is a summary of the hospitalization. Please see the full medical record for further details. CC: Dr. Maurer; Niels Santoro MD* [id number]/[facility] #: [id number] MTDD
== END 2016-09-07 14:00 | disposition home or self-care (01) | DRG 193 ==
LOC: ED 17:57 → MEDTELE 21:36
PROVIDERS: ADMIT Internal Medicine; ATTEND Hospitalist
DX: J18.9 Pneumonia, unspecified organism (principal); I50.23 Acute on chronic systolic (congestive) heart failure; I47.2 Ventricular tachycardia; I25.5 Ischemic cardiomyopathy; I25.10 Atherosclerotic heart disease of native coronary artery without angina pectoris; K21.9 Gastro-esophageal reflux disease without esophagitis; E78.5 Hyperlipidemia, unspecified; E03.9 Hypothyroidism, unspecified; E11.9 Type 2 diabetes mellitus without complications; R79.89 Other specified abnormal findings of blood chemistry; R06.02 Shortness of breath; I48.91 Unspecified atrial fibrillation; E78.00 Pure hypercholesterolemia, unspecified; F41.9 Anxiety disorder, unspecified; F43.10 Post-traumatic stress disorder, unspecified; H91.90 Unspecified hearing loss, unspecified ear; I11.0 Hypertensive heart disease with heart failure; R74.0 Nonspecific elevation of levels of transaminase and lactic acid dehydrogenase [LDH]; I49.8 Other specified cardiac arrhythmias; R79.1 Abnormal coagulation profile; I08.3 Combined rheumatic disorders of mitral, aortic and tricuspid valves; I27.2 Other secondary pulmonary hypertension; K76.0 Fatty (change of) liver, not elsewhere classified; E87.70 Fluid overload, unspecified; I25.2 Old myocardial infarction; Z95.810 Presence of automatic (implantable) cardiac defibrillator; Z95.1 Presence of aortocoronary bypass graft; Z88.8 Allergy status to other drugs, medicaments and biological substances; Z82.49 Family history of ischemic heart disease and other diseases of the circulatory system; Z87.891 Personal history of nicotine dependence; Z83.3 Family history of diabetes mellitus; Z99.81 Dependence on supplemental oxygen
CPT/HCPCS: 36415; 71010; 71275; 76700; 80048; 80053; 80074; 80076; 81003; 81015; 83036; 83605; 83880; 84436; 84439; 84443; 84479; 84481; 84484; 85025; 85610; 85730; 86140; 87040; 87086; 87205; 87502; 87899; 93005; 93306; 94760; 99285; A9270-GY; J0456; J0696; J1644; J1940; Q9967

== ENCOUNTER 2017-02-09 16:43 | Emergency (ER) | payer MEDICARE, OTHER ==
[2017-02-09 17:39] LABS: Hematocrit 38 % (42-52); Hemoglobin 12.5 g/dl (14.0-18.0); Mean Corpuscular HGB Conc 33 g/dl (31-36); Mean Corpuscular Hemoglobin 32 pg (27-31); Mean Corpuscular Volume 97 fL (80-94); Mean Platelet Volume 9 um3 (7.4-10.4); Red Blood Count 3.95 10^6/ul (4.0-5.4); Red Cell Distribution Width 18 % (10.5-15)
[2017-02-09 17:55] LABS: Albumin 4.2 g/dL (3.2-5.2); BUN/Creatinine Ratio 22.8 (8-20); C Reactive Protein 22.43 mg/L (< 5.00); Calcium 9.3 mg/dL (8.6-10.3); EGFR African American 92.4 (>60); EGFR Non-African American 71.8 (>60); Potassium 4.7 mmol/L (3.5-5.0); Total Bilirubin 1.1 mg/dL (0.2-1.0); Total Protein 7.2 g/dL (6.4-8.9); Troponin I 0.03 ng/mL (<0.04)
--- NOTE | 2017-02-09 18:08 | RAD ---
INDICATION: Short of breath COMPARISON: Chest x-ray September 04, 2016 TECHNIQUE: An AP portable view obtained at 1743 hours is submitted. FINDINGS: Bones/Soft Tissues: There are no acute bony findings. There is sternotomy/CABG. There is left-sided cardiac pacemaker/defibrillator Cardiomediastinal: The heart at the upper limits of normal in size. There is left ventricular configuration. Lungs: No acute infiltrates. Mild hypoventilation right lung base.. Pleura: There are significant no pleural effusions. Other: Chronic elevation right hemidiaphragm. IMPRESSION: POSTOPERATIVE CHANGE. NO ACTIVE DISEASE.
--- NOTE | 2017-02-09 19:18 | RAD ---
INDICATION: ] Right upper quadrant pain COMPARISON: Complete abdominal sonogram September 04, 2016 TECHNIQUE: Longitudinal and transverse scans of the right upper quadrant were obtained. Doppler interrogation of the hepatic and portal venous system was performed. FINDINGS: Liver: There is hepatomegaly with hepatic steatosis. There are no masses . The liver measures 19 cm in cephalocaudal dimension. Vessels: There is normal hepatic and portal venous flow. Bile ducts: There is no evidence of intrahepatic or extrahepatic ductal dilatation. The common duct measures 0.4 cm. Gallbladder: The sonographic appearance of the gallbladder is normal. There is no evidence of cholelithiasis, thickening of the gallbladder wall, or pericholecystic fluid. Pancreas: The visualized pancreas appears normal Right kidney: The right kidney is normal in size and echogenicity. There are no masses or calculi. There is no evidence of hydronephrosis. The right kidney measures 12.0 x 5.7 x 6.4 cm. IVC and aorta: The aorta and superior vena cava appear normal. Fluid: There is trace free fluid in the right and left upper quadrants. Other: There is large left renal cyst which is previously been documented.. IMPRESSION: TRACE FREE FLUID. THIS REPRESENTS A NONSPECIFIC FINDING. LARGE LEFT RENAL CYST MORE COMPLETELY EVALUATED AT THE TIME OF COMPLETE ABDOMINAL SONOGRAPHY
[2017-02-09 19:55] LABS: Urine Bilirubin Negative (Negative); Urine Glucose Negative (Negative); Urine Nitrite Negative (Negative)
[2017-02-09 21:10] VITALS: BP 128/80
--- NOTE | 2017-02-10 17:39 | ED ---
Hugo Rg Auryana, scribed for Jack Echavarria MD on 02/09/17 at 1725 . Abdominal Pain/Male - HPI Summary HPI Summary: 76 year old female presents with abdominal pain starting 3 weeks ago. Patient reports that the pain initially was located in the epigastric area for the first 3 days and is now more diffuse. He also has general illness, decreased appetite, nausea, and SOB on exertion- reports due to heart issues. Nausea is aggravated by food. He reports normal BMs - normal color and consistency. 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 PMHx is significant for CABG with defibrillator palcement - scheduled surgery upcoming for additional wire, HTN, hypothyroidism, and DM. Dr. Maurer is his PCP. - History of Current Complaint Chief Complaint: EDAbdPain Stated Complaint: ABD PAIN,NAUSEA, SWEETS Time Seen by Provider: 02/09/17 17:09 Hx Obtained From: Patient Onset/Duration: Gradual Onset, Lasting Weeks - 3, Still Present Timing: Constant Severity Initially: Mild Severity Currently: Moderate Pain Intensity: 8 Pain Scale Used: 0-10 Numeric Location: Diffuse - after the first 3 days, Epigastric - initially Aggravating Factor(s): Food - nausea is aggravated by food Associated Signs And Symptoms: Positive: Decreased Appetite, Nausea, Other - general illness - Allergies/Home Medications Allergies/Adverse Reactions: Allergies Allergy/AdvReac Type Severity Reaction Status Date / Time Acetaminophen [From Excedrin] AdvReac Unknown Verified 09/04/16 18:18 Reaction Details Atorvastatin [From Lipitor] AdvReac Unknown Verified 09/04/16 19:28 Reaction Details Caffeine [From Excedrin] AdvReac Unknown Verified 09/04/16 18:18 Reaction Details Charcoal AdvReac Unknown Verified 09/04/16 19:28 Reaction Details Insulin AdvReac See Comment Verified 09/04/16 18:18 Lisinopril AdvReac Unknown Verified 09/04/16 19:28 Reaction Details PMH/Surg Hx/FS Hx/Imm Hx Endocrine/Hematology History: Reports: Hx Diabetes, Hx Thyroid Disease - hypothyroidism Cardiovascular History: Reports: Hx Angina, Hx Atrial Fibrillation, Hx Auto Implanted Cardiovert Defib, Hx Coronary Artery Disease, Hx Hypercholesterolemia , Hx Hypertension, Hx Pacemaker/ICD, Other Cardiovascular Problems/Disorders - Cardiomyopathy, V tach Respiratory History: Denies: Hx Asthma, Hx Chronic Obstructive Pulmonary Disease (COPD) Sensory History: Reports: Hx Contacts or Glasses, Hx Hearing Problem Opthamlomology History: Reports: Hx Contacts or Glasses Psychiatric History: Reports: Hx Anxiety, Hx Post Traumatic Stress Disorder - Surgical History Surgery Procedure, Year, and Place: CABG at age 54, internal defibrillator 2009 Hx Anesthesia Reactions: No Infectious Disease History: Denies: Hx Clostridium Difficile, Hx Hepatitis, Hx Human Immunodeficiency Virus (HIV), Hx of Known/Suspected MRSA, Hx Shingles, Hx Tuberculosis, History Other Infectious Disease, Traveled Outside the [place] in Last 30 Days - Family History Known Family History: Positive: Cardiac Disease, Hypertension, Diabetes - Social History Lives: With Family Alcohol Use: None Hx Substance Use: No Substance Use Type: Reports: None Hx Tobacco Use: Yes Smoking Status (MU): Former Smoker Review of Systems Positive: Other - general illness . Negative: Fever Eyes: Negative ENT: Negative Cardiovascular: Negative Positive: Shortness Of Breath Positive: Nausea, Other - general illness Genitourinary: Negative Musculoskeletal: Negative Skin: Negative Neurological: Negative Psychological: Normal All Other Systems Reviewed And Are Negative: Yes Physical Exam Triage Information Reviewed: Yes Vital Signs On Initial Exam: Initial Vitals Temp Pulse Resp BP Pulse Ox 97.1 F 82 22 131/91 95 02/09/17 16:58 02/09/17 16:58 02/09/17 16:58 02/09/17 16:58 02/09/17 16:58 Vital Signs Reviewed: Yes Appearance: Positive: No Pain Distress, Well-Nourished Skin: Positive: Warm, Skin Color Reflects Adequate Perfusion, Dry, Jaundiced - slight; slight icteric Head/Face: Positive: Normal Head/Face Inspection Eyes: Positive: Normal ENT: Positive: Normal ENT inspection Neck: Positive: Supple, Nontender Respiratory/Lung Sounds: Positive: Breath Sounds Present, Other - crackles in the right base Cardiovascular: Positive: Normal, RRR, Pulses are Symmetrical in both Upper and Lower Extremities Abdomen Description: Positive: Nontender, Soft Bowel Sounds: Positive: Present Musculoskeletal: Positive: Normal, Strength/ROM Intact, Other - mild pitting edema in the LE - L>R Neurological: Positive: Normal, Sensory/Motor Intact Psychiatric: Positive: Normal, Affect/Mood Appropriate Diagnostics - Vital Signs Vital Signs Temp Pulse Resp BP Pulse Ox 02/09/17 16:58 97.1 F 82 22 131/91 95 - Laboratory Lab Results: Lab Results 02/09/17 02/09/17 02/09/17 Range/Units 17:25 17:25 17:25 WBC 10.0 (3.5-10.8) 10^3/ul RBC 3.95 L (4.0-5.4) 10^6/ul Hgb 12.5 L (14.0-18.0) g/dl Hct 38 L (42-52) % MCV 97 H (80-94) fL MCH 32 H (27-31) pg MCHC 33 (31-36) g/dl RDW 18 H (10.5-15) % Plt Count 212 (150-450) 10^3/ul MPV 9 (7.4-10.4) um3 Neut % (Auto) 80.0 (38-83) % Lymph % (Auto) 8.7 L (25-47) % Rock % (Auto) 10.5 H (1-9) % Eos % (Auto) 0.4 (0-6) % Baso % (Auto) 0.4 (0-2) % Absolute Neuts (auto) 8.0 H (1.5-7.7) 10^3/ul Absolute Lymphs (auto) 0.9 L (1.0-4.8) 10^3/ul Absolute Monos (auto) 1.1 H (0-0.8) 10^3/ul Absolute Eos (auto) 0 (0-0.6) 10^3/ul Absolute Basos (auto) 0 (0-0.2) 10^3/ul Absolute Nucleated RBC 0.01 10^3/ul Nucleated RBC % 0.1 INR (Anticoag Therapy) 1.52 H (0.89-1.11) Sodium 130 L (133-145) mmol/L Potassium 4.7 (3.5-5.0) mmol/L Chloride 95 L (101-111) mmol/L Carbon Dioxide 24 (22-32) mmol/L Anion Gap 11 (2-11) mmol/L BUN 23 (6-24) mg/dL Creatinine 1.01 (0.67-1.17) mg/dL Est GFR ( Amer) 92.4 (>60) Est GFR (Non-Af Amer) 71.8 (>60) BUN/Creatinine Ratio 22.8 H (8-20) Glucose 164 H (70-100) mg/dL Lactic Acid (0.5-2.0) mmol/L Calcium 9.3 (8.6-10.3) mg/dL Total Bilirubin 1.10 H (0.2-1.0) mg/dL AST 104 H (13-39) U/L ALT 89 H (7-52) U/L Alkaline Phosphatase 82 (34-104) U/L Troponin I 0.03 (<0.04) ng/mL C-Reactive Protein 22.43 H (< 5.00) mg/L Total Protein 7.2 (6.4-8.9) g/dL Albumin 4.2 (3.2-5.2) g/dL Globulin 3.0 (2-4) g/dL Albumin/Globulin Ratio 1.4 (1-3) Lipase 19 (11.0-82.0) U/L Urine Color Urine Appearance Urine pH (5-9) Ur Specific Cowen (1.010-1.030) Urine Protein (Negative) Urine Ketones (Negative) Urine Blood (Negative) Urine Nitrate (Negative) Urine Bilirubin (Negative) Urine Urobilinogen (Negative) Ur Leukocyte Esterase (Negative) Urine Glucose (Negative) 02/09/17 02/09/17 Range/Units 17:25 19:47 WBC (3.5-10.8) 10^3/ul RBC (4.0-5.4) 10^6/ul Hgb (14.0-18.0) g/dl Hct (42-52) % MCV (80-94) fL MCH (27-31) pg MCHC (31-36) g/dl RDW (10.5-15) % Plt Count (150-450) 10^3/ul MPV (7.4-10.4) um3 Neut % (Auto) (38-83) % Lymph % (Auto) (25-47) % Rock % (Auto) (1-9) % Eos % (Auto) (0-6) % Baso % (Auto) (0-2) % Absolute Neuts (auto) (1.5-7.7) 10^3/ul Absolute Lymphs (auto) (1.0-4.8) 10^3/ul Absolute Monos (auto) (0-0.8) 10^3/ul Absolute Eos (auto) (0-0.6) 10^3/ul Absolute Basos (auto) (0-0.2) 10^3/ul Absolute Nucleated RBC 10^3/ul Nucleated RBC % INR (Anticoag Therapy) (0.89-1.11) Sodium (133-145) mmol/L Potassium (3.5-5.0) mmol/L Chloride (101-111) mmol/L Carbon Dioxide (22-32) mmol/L Anion Gap (2-11) mmol/L BUN (6-24) mg/dL Creatinine (0.67-1.17) mg/dL Est GFR ( Amer) (>60) Est GFR (Non-Af Amer) (>60) BUN/Creatinine Ratio (8-20) Glucose (70-100) mg/dL Lactic Acid 2.3 H* (0.5-2.0) mmol/L Calcium (8.6-10.3) mg/dL Total Bilirubin (0.2-1.0) mg/dL AST (13-39) U/L ALT (7-52) U/L Alkaline Phosphatase (34-104) U/L Troponin I (<0.04) ng/mL C-Reactive Protein (< 5.00) mg/L Total Protein (6.4-8.9) g/dL Albumin (3.2-5.2) g/dL Globulin (2-4) g/dL Albumin/Globulin Ratio (1-3) Lipase (11.0-82.0) U/L Urine Color Yellow Urine Appearance Clear Urine pH 6.0 (5-9) Ur Specific Cowen 1.015 (1.010-1.030) Urine Protein Negative (Negative) Urine Ketones Negative (Negative) Urine Blood Negative (Negative) Urine Nitrate Negative (Negative) Urine Bilirubin Negative (Negative) Urine Urobilinogen Negative (Negative) Ur Leukocyte Esterase Negative (Negative) Urine Glucose Negative (Negative) Result Diagrams: 02/09/17 17:25 02/09/17 17:25 Lab Statement: Any lab studies that have been ordered have been reviewed, and results considered in the medical decision making process. - Radiology CXR Xray Interpretation: Positive (See Comments) - IMPRESSION: POSTOPERATIVE CHANGE. NO ACTIVE DISEASE. Radiology Interpretation Completed By: Radiologist Abdominal Pain Fem Course/Dx - Course Assessment/Plan: Mr. Carmichael had some RUQ pain for a couple days 3 weeks ago. Since then he as had nausea and decreased appetite. His transaminases are a little elevated and he is awaiting an U/S of his gallbladder. - Diagnoses Provider Diagnoses: Epigastric abdominal pain Discharge - Discharge Plan Condition: Stable Disposition: HOME Discharge Disposition Comment: SIGNOUT TO DR. ANAYA AT 19:00 PENDING GALLBLADDER US Patient Education Materials: Diet for Stomach Ulcers and Gastritis (ED), Abdominal Pain (ED) Referrals: Mik Maurer MD [Primary Care Provider] - 3 Days The documentation as recorded by the Hugo wagoner Auryana accurately reflects the service I personally performed and the decisions made by me, Jack Echavarria MD.
== END 2017-02-09 21:05 | disposition home or self-care (01) ==
LOC: ED 16:43
DX: R10.13 Epigastric pain (principal); R06.02 Shortness of breath; R11.0 Nausea; Z87.891 Personal history of nicotine dependence
CPT/HCPCS: 36415; 71010; 76705; 80053; 81003; 83605; 83690; 84484; 85025; 85610; 86140; 99284

== ENCOUNTER 2017-10-12 12:29 | Emergency (ER) | payer MEDICARE, OTHER ==
[2017-10-12 14:15] VITALS: BP 129/64
--- NOTE | 2017-10-12 14:51 | UC ---
Complaint Male HPI - HPI Summary HPI Summary: 77 yo male states that for about a year he has had mild discoloration of penis head and foul smell improves with hygene and lotrimen has appt with PMD nest week incirc - History of Current Complaint Chief Complaint: UCSkin Stated Complaint: PERSONAL Time Seen by Provider: 10/12/17 14:33 Hx Obtained From: Patient Onset/Duration: Gradual Onset, Lasting Weeks Timing: Constant Severity Initially: Mild Severity Currently: Mild Pain Intensity: 0 Pain Scale Used: 0-10 Numeric Location: Penis Aggravating Factor(s): Other Alleviating Factor(s): Other Associated Signs And Symptoms: Positive: Negative - Allergies/Home Medications Allergies/Adverse Reactions: Allergies Allergy/AdvReac Type Severity Reaction Status Date / Time Insulins Allergy Severe HYPOGYCEMIA Verified 10/12/17 14:03 acetaminophen AdvReac Unknown Unknown Verified 10/12/17 14:01 [From Excedrin Migraine] Reaction Details aspirin AdvReac Unknown Unknown Verified 10/12/17 14:01 [From Excedrin Migraine] Reaction Details caffeine AdvReac Unknown Unknown Verified 10/12/17 14:01 [From Excedrin Migraine] Reaction Details lisinopril AdvReac Unknown Coughing Verified 10/12/17 14:03 CHARCOAL Allergy Unknown Unknown Uncoded 10/12/17 14:03 Reaction Details PMH/Surg Hx/FS Hx/Imm Hx Previously Healthy: Yes Endocrine History: Diabetes, Dyslipidemia Cardiovascular History: Cardiac Disease, Hypertension, Pacemaker/ICD - Surgical History Surgical History: Yes Surgery Procedure, Year, and Place: CABG at age 54, internal defibrillator 2008 - Family History Known Family History: Positive: Cardiac Disease, Hypertension, Diabetes - Social History Alcohol Use: None Substance Use Type: None Smoking Status (MU): Former Smoker - Immunization History Most Recent Influenza Vaccination: 04/26/2016 Most Recent Tetanus Shot: unknown Most Recent Pneumonia Vaccination: 2013 Review of Systems Constitutional: Negative Skin: Negative Eyes: Negative ENT: Negative Respiratory: Negative Cardiovascular: Negative Gastrointestinal: Negative Genitourinary: Negative Motor: Negative Neurovascular: Negative Musculoskeletal: Negative Neurological: Negative Psychological: Negative Is Patient Immunocompromised?: No All Other Systems Reviewed And Are Negative: Yes Physical Exam Triage Information Reviewed: Yes Appearance: Well-Appearing, No Pain Distress, Well-Nourished Vital Signs: Initial Vital Signs Temp 98.5 F 10/12/17 14:05 Pulse 65 10/12/17 14:05 Resp 17 10/12/17 14:05 BP 129/64 10/12/17 14:05 Pulse Ox 96 10/12/17 14:05 Vital Signs Reviewed: Yes Eyes: Positive: Conjunctiva Clear ENT: Positive: Hearing grossly normal, Uvula midline. Negative: Nasal congestion, Nasal drainage, Tonsillar swelling, Tonsillar exudate, Trismus, Muffled voice, Hoarse voice Neck: Positive: Supple Respiratory: Positive: Lungs clear, Normal breath sounds, No respiratory distress, No accessory muscle use Cardiovascular: Positive: RRR Abdomen Description: Positive: Other: - foreskin retracted/mils sheen to glans/ no profuse d/c Musculoskeletal: Positive: ROM Intact, No Edema Neurological: Positive: Alert Psychological Exam: Normal Skin Exam: Normal Complaint Male Course/Dx - Differential Dx/Diagnosis Provider Diagnoses: balantitis Discharge - Discharge Plan Condition: Stable Disposition: HOME Prescriptions: Fluconazole 150 MG (NF) [Diflucan 150 mg (NF)] 150 mg PO ONCE #2 tab Patient Education Materials: Lucia (ED) Referrals: Mik Maurer MD [Primary Care Provider] - 1 Week Additional Instructions: hold off on lotrimen for now try diflucan see your MD as planned
== END 2017-10-12 14:56 | disposition home or self-care (01) ==
LOC: UCCORT 12:29
DX: N48.1 Balanitis (principal); Z87.891 Personal history of nicotine dependence; E11.9 Type 2 diabetes mellitus without complications; E78.5 Hyperlipidemia, unspecified; I10 Essential (primary) hypertension; Z95.810 Presence of automatic (implantable) cardiac defibrillator
CPT/HCPCS: 99212; G0463

== ENCOUNTER 2019-04-15 15:31 | Observation (INO) | payer MEDICARE, OTHER ==
--- NOTE | 2019-04-15 15:58 | ED ---
Syncope/Near Syncope - HPI Summary HPI Summary: This patient is a 79 year old M arriving by ambulance to [facility] accompanied by chief complaint of dizziness and syncope since 04/15/19 prior to arrival. Per EMS patient had 40-50 seconds of ventricular tachycardia but had pulse entire time. Patient states he hit head upon falling with 15 seconds of LOC. Patient states that ICD did not shock him and he has a pacemaker as well as defibrillator. Patient reports that his Link Trainer Teacher is Dr. Santoro. The patient rates the pain 0/10 in severity. Symptoms aggravated by nothing. Symptoms alleviated by nothing. Patient reports nausea sick to stomach, Vomiting stomach bile. Patient denies CP, GARRETT, vision changes, fever, cough, N/V (since resolved). - History Of Current Complaint Chief Complaint: EDSyncope Time Seen by Provider: 04/15/19 15:41 Hx Obtained From: Patient Onset/Duration: Sudden Onset Timing: Seconds - 15 seconds Context: Witnessed - Activity At Onset: Other - walking to mailbox Associated Head Trauma: Yes Aggravating Factor(s): Nothing Alleviating Factor(s): Nothing Associated Signs And Symptoms: Head Trauma (Remote) - Allergies/Home Medications Allergies/Adverse Reactions: Allergies Allergy/AdvReac Type Severity Reaction Status Date / Time Insulins Allergy Severe HYPOGLYCEMI Verified 08/05/18 14:27 A acetaminophen AdvReac Unknown Unknown Verified 08/05/18 14:27 [From Excedrin Migraine] Reaction Details aspirin AdvReac Unknown Unknown Verified 08/05/18 14:27 [From Excedrin Migraine] Reaction Details caffeine AdvReac Unknown Unknown Verified 08/05/18 14:27 [From Excedrin Migraine] Reaction Details lisinopril AdvReac Unknown Coughing Verified 08/05/18 14:27 CHARCOAL Allergy Unknown Unknown Uncoded 08/05/18 14:27 Reaction Details Home Medications: Home Medications Levothyroxine TAB* [Synthroid TAB*] 125 mcg PO DAILY 04/15/19 [History Confirmed 04/15/19] Saw [place] Fruit [Saw [place]] 450 mg PO BID 04/15/19 [History Confirmed ] metFORMIN* [Glucophage 1000 MG TAB *] 1,000 mg PO BID 04/15/19 [History Confirmed 04/15/19] PMH/Surg Hx/FS Hx/Imm Hx Endocrine/Hematology History: Reports: Hx Diabetes, Hx Thyroid Disease - hypothyroidism Cardiovascular History: Reports: Hx Angina, Hx Atrial Fibrillation, Hx Auto Implanted Cardiovert Defib, Hx Coronary Artery Disease, Hx Hypercholesterolemia , Hx Hypertension, Hx Pacemaker/ICD, Other Cardiovascular Problems/Disorders - Cardiomyopathy, V tach Respiratory History: Denies: Hx Asthma, Hx Chronic Obstructive Pulmonary Disease (COPD) Sensory History: Reports: Hx Contacts or Glasses, Hx Hearing Problem Opthamlomology History: Reports: Hx Contacts or Glasses Psychiatric History: Reports: Hx Anxiety, Hx Post Traumatic Stress Disorder - Surgical History Surgery Procedure, Year, and Place: CABG at age 54, internal defibrillator 2009 Hx Anesthesia Reactions: No Infectious Disease History: No Infectious Disease History: Denies: Hx Clostridium Difficile, Hx Hepatitis, Hx Human Immunodeficiency Virus (HIV), Hx of Known/Suspected MRSA, Hx Shingles, Hx Tuberculosis, History Other Infectious Disease, Traveled Outside the [place] in Last 30 Days - Family History Known Family History: Positive: Cardiac Disease, Hypertension, Diabetes - Social History Alcohol Use: None Hx Substance Use: No Substance Use Type: Reports: None Hx Tobacco Use: Yes Smoking Status (MU): Former Smoker Review of Systems Negative: Fever Positive: Other - Negative; vision changes Negative: Chest Pain Negative: Cough Positive: Vomiting - Bile; since resolved, Nausea - since resolved Positive: Syncope - 15 seconds. Negative: Headache All Other Systems Reviewed And Are Negative: Yes Physical Exam - Summary Physical Exam Summary: VITAL SIGNS: Reviewed. GENERAL: Patient is a well-developed and nourished male who is lying comfortable in the stretcher. Patient is not in any acute respiratory distress. HEAD AND FACE: Normocephalic and atraumatic. EYES: PERRLA, EOMI x 2, No injected conjunctiva. EARS: Hearing grossly intact. Ear canals and tympanic membranes are WNL. MOUTH: Oropharynx within normal limits. NECK: Supple, trachea is midline, no adenopathy, no JVD. CHEST: Symmetric, no tenderness at palpation. LUNGS: Clear to auscultation bilaterally. No wheezing or crackles. CVS: RRR, S1 and S2 present, no murmurs or gallops appreciated, Pacemaker and defibrillator located in left chest. ABDOMEN: Soft, non-tender. No signs of distention. Positive bowel sounds. No rebound, no guarding, and no masses palpated. No abdominal bruit or pulsations. EXTREMITIES: FROM in all major joints, no edema, no cyanosis or clubbing. NEURO: Alert and oriented x 3. No acute neurological deficits. Speech is normal. SKIN: Dry and warm. GCS: 15 Triage Information Reviewed: Yes Vital Signs On Initial Exam: Initial Vitals Temp Pulse Resp BP Pulse Ox 96.8 F 75 21 114/59 95 04/15/19 15:32 04/15/19 15:32 04/15/19 15:32 04/15/19 15:32 04/15/19 15:32 Vital Signs Reviewed: Yes - [place] Coma Scale Best Eye Response: 4 - Spontaneous Best Motor Response: 6 - Obeys Commands Best Verbal Response: 5 - Oriented Coma Scale Total: 15 Diagnostics - Vital Signs Vital Signs Temp Pulse Resp BP Pulse Ox 04/15/19 15:43 66 20 93 04/15/19 15:36 66 31 114/59 93 04/15/19 15:32 96.8 F 75 21 114/59 95 - Laboratory Result Diagrams: 04/15/19 16:13 04/15/19 16:13 Lab Statement: Any lab studies that have been ordered have been reviewed, and results considered in the medical decision making process. - Radiology Chest Xray Radiology Interpretation Completed By: Radiologist Summary of Radiographic Findings: IMPRESSION: 1. No acute cardiopulmonary process by radiograph. 2. Stable cardiomediastinal silhouette status post midline sternotomy and CABG. 3. Left chest wall AICD. 4. Unchanged elevation of the right hemidiaphragm. ED Physician has reviewed this report. - CT Brain CT Scan CT Interpretation Completed By: Radiologist Summary of CT Findings: IMPRESSION: 1. No acute intracranial abnormality. 2. Mild cerebral volume loss. 3. Mild chronic small vessel ischemic disease is likely. 4. Chronic left maxillary sinusitis. ED Physician has reviewed this report. - EKG 1534 Cardiac Rate: Other Rate - Pacemaker 70 bpm EKG Rhythm: - Pacemaker 70 bpm Summary of EKG Findings: No ST Elevation. Course/Dx Course Of Treatment: This patient is a 79 year old M arriving by ambulance to [facility] accompanied by chief complaint of dizziness and syncope since 04/15/19 prior to arrival. Per EMS patient was 40-50 seconds of ventricular tachycardia but had pulse entire time. Patient states he hit head upon falling. Patient states that ICD did not shock him and he has a pacemaker as well as defibrillator. Patient reports that his Link Trainer Teacher is Dr. Santoro. The patient rates the pain 0/10 in severity. Symptoms aggravated by nothing. Symptoms alleviated by nothing. Patient reports nausea sick to stomachVomiting stomach bile. Patient denies CP, GARRETT, vision changes, fever, cough, N/V (since resolved). Blood work without any significant abnormality except for slight anemia with hemoglobin 10.1 hematocrit steady, BUN is 35 creatinine 1.98. Since that the patient is intravascularly depleted. Glucose is 185 magnesium is 1.7, for which the patient was given magnesium IV. the BMP is more than 1300 however he since that the patient has chronic elevated BNP. However I do believe that the patient may be other noted extravascular. Urinalysis is negative for UTI. CXR reveals, per radiologist, IMPRESSION: 1. No acute cardiopulmonary process by radiograph. 2. Stable cardiomediastinal silhouette status post midline sternotomy and CABG. 3. Left chest wall AICD. 4. Unchanged elevation of the right hemidiaphragm. Brain CT Scan reveals, per radiologist, IMPRESSION: 1. No acute intracranial abnormality. 2. Mild cerebral volume loss. 3. Mild chronic small vessel ischemic disease is likely. 4. Chronic left maxillary sinusitis. [employer] report is that the patient had multiple episodes of V-tach. I discussed the case with [employer] nurse and he reports that he has episodes of V-tach today at 1348, protein 20, 4021, 1422. The device responded with ATP and not shocking. At this time I discussed my physical exam and findings with Dr. Santoro and he requests for the patient to be admitted and someone from cardiology consult. - Diagnoses Provider Diagnoses: Syncope, V tach - Physician Notifications Discussed Care of Patient With: Niels Santoro - Link Trainer Teacher Time Discussed With Above Provider: 17:00 Instructed by Provider To: Other - Dr. Santoro said that they will use [employer] to see what times the patient was in V-tach. Dr. Santoro recommends admission. Dr. Varner, Cardiology will see the patient tomorrow. At 1740, Da , [employer] rep, reports the patient had multiple episodes of v-tach at 1348, 1420, 1421, and 1422, which may be the cause of his syncopal episode. At 1754, Dr. Katarzyna accepts the patient for admission. Discharge ED - Sign-Out/Discharge Documenting (check all that apply): Patient Departure - Admitted Patient Received Moderate/Deep Sedation with Procedure: No - Discharge Plan Condition: Stable Disposition: ADMITTED TO [facility] Referrals: Mik Maurer MD [Primary Care Provider] - - Billing Disposition and Condition Condition: STABLE Disposition: Admitted to [facility] - Attestation Statements Document Initiated by Scribe: Yes Documenting Scribe: Renetta Mukherjee Provider For Whom Job is Documenting (Include Credential): Dr. Ric Palmer MD Scribe Attestation: Renetta Rg scribed for Dr. Ric Palmer MD on 04/15/19 at 1840. Scribe Documentation Reviewed: Yes Provider Attestation: The documentation as recorded by the Renetta wagoner accurately reflects the service I personally performed and the decisions made by me, Dr. Ric Palmer MD Status of Scribe Document: Viewed
[2019-04-15 16:20] LABS: ABS Eosinophils 0.1 10^3/ul (0-0.6); ABS Lymphocytes 0.5 10^3/ul (1.0-4.8); ABS Monocytes 0.6 10^3/ul (0-0.8); ABS Neutrophils 4.1 10^3/ul (1.5-7.7); Eosinophil % 1.3 %; Hematocrit 30 % (42-52); Hemoglobin 10.1 g/dL (14.0-18.0); Mean Corpuscular HGB Conc 33 g/dL (31-36); Mean Corpuscular Hemoglobin 32 pg (27-31); Mean Corpuscular Volume 96 fL (80-94); Platelet Count 180 10^3/uL (150-450); Red Blood Count 3.15 10^6 /uL (4.18-5.48); Red Cell Distribution Width 17 % (10-15); White Blood Count 5.2 10^3/uL (3.5-10.8)
[2019-04-15 16:45] LABS: ALT 12 U/L (7-52); AST 13 U/L (13-39); Albumin 4.3 g/dL (3.2-5.2); Albumin/Globulin Ratio 1.7 (1-3); Alkaline Phosphatase 66 U/L (34-104); Anion Gap 9 mmol/L (2-11); BUN/Creatinine Ratio 17.7 (8-20); Blood Urea Nitrogen 35 mg/dL (6-24); CO2 Carbon Dioxide 28 mmol/L (22-32); Calcium 9.6 mg/dL (8.6-10.3); Chloride 101 mmol/L (101-111); EGFR African American 39.7 (>60); EGFR Non-African American 32.8 (>60); Globulin 2.5 g/dL (2-4); Glucose 185 mg/dL (70-100); Magnesium 1.7 mg/dL (1.9-2.7); Potassium 4.2 mmol/L (3.5-5.0); Sodium 138 mmol/L (135-145); Total Protein 6.8 g/dL (6.4-8.9)
[2019-04-15 16:46] LABS: Troponin I 0.01 ng/mL (<0.04)
[2019-04-15 16:48] LABS: Alcohol < 10 mg/dL (<10)
[2019-04-15 17:02] LABS: TSH (Thyroid Stimulating Horm) 3.26 mcIU/mL (0.34-5.60)
[2019-04-15 17:07] LABS: Urine Appearance Clear; Urine Bilirubin Negative (Negative); Urine Blood Negative (Negative); Urine Color Yellow; Urine Glucose Negative (Negative); Urine Ketones Negative (Negative); Urine Nitrite Negative (Negative); Urine Protein Negative (Negative); Urine Specific Gravity 1.009 (1.010-1.030); Urine Urobilinogen Negative (Negative)
[2019-04-15 17:28] LABS: Urine Benzodiazepine Screen None Detected (None Detect); Urine Opiates Screen None Detected (None Detect)
[2019-04-15] MEDS ORDERED: Magnesium Sulfate 1 GM IV* 1 GM/100 ML BAG IV ONE (17:49)
[2019-04-15] MEDS ORDERED: Magnesium Sulfate 2 GM IV* 2 GM/50 ML BAG IVPB ONE (18:45)
[2019-04-15] MEDS ORDERED: Dextrose 50% VIAL 50 ml IV PUSH PRN (19:37)
[2019-04-15] MEDS: Furosemide TAB* 40 MG PO SCH (20:17)
[2019-04-15] MEDS: Metoprolol Succinate XL TAB* 100 MG PO SCH (20:17)
[2019-04-15] MEDS: Heparin VIAL(*) 5000 UNITS/ML VIAL (FIVE THOUSAND) SUBCUT SCH (20:17)
[2019-04-15] MEDS: MEXILETINE 150 MG PO SCH (20:20)
--- NOTE | 2019-04-15 21:44 | HP ---
CC: Dr. Maurer; Dr. Santoro; Dr. Davis * HISTORY AND PHYSICAL: DATE OF ADMISSION: 04/15/19 PRIMARY CARE PROVIDER: Dr. Maurer. OTHER PROVIDERS: Dr. Santoro, Dr. Davis. ATTENDING PHYSICIAN: Dr. Guzmán * (dictated by LONDON Chaney). CHIEF COMPLAINT: Syncope. HISTORY OF PRESENT ILLNESS: Mr. Carmichael is a 79-year-old male with an extensive past medical history of heart disease including coronary artery disease status post quadruple bypass, GA x2, systolic heart failure with ejection fraction of 20% to 25%, V-tach who presented to the ER today after a syncopal episode. The patient notes that he was walking to get his mail. On his way back, he saw spots and syncopized. He denies lightheadedness, dizziness , diaphoresis, or palpitations during the event. He does note that he had loss of consciousness for less than 1 minute. His called EMS while the patient was unconscious. EMS arrived and the patient notes that he vomited in the ambulance. Per EMS, the patient had V- tach with a pulse on the way to the ER. The patient notes that he has had no events like this in the past. He has not missed any of his prescribed medications. He does note for the last approximately 1 month he has felt intermittently "sick to his stomach" but is unable to further define this. He has had a sinus cough at night due to postnasal drainage, which is chronic. The patient is a patient of Dr. Santoro. His last appointment was 5 months ago. He states he sees Dr. Santoro approximately every 6 months and he is due to see him on 04/30/19. The patient notes a history of decreased exercise capacity over the last approximately 2 years that has progressively worsened. The patient had a ventricular ablation at [place] performed by Dr. Davis in May 2016. Since then he notes decrease in exercise capacity/capacity for activity. In the ER, the patient received a full workup. He received an interrogation of his device which showed episodes of V-tach at 1348, 1420, 1421, 1422. His syncopal episode was between 1421 and 1422 and therefore, corresponds to the episodes of V-tach. He is noted to have a pacer plus ATP in place. The patient received blood work, which showed a macrocytic anemia. He has an elevated creatinine and a low magnesium. His BNP is elevated. His TSH is within normal limits. CT of the head shows no acute findings. Chest x-ray shows no acute findings. EKG shows paced rhythm at a rate of 70. The hospitalist team was asked to evaluate the patient for admission. PAST MEDICAL HISTORY: 1. Systolic heart failure with ejection fraction of 20% to 25%. 2. Coronary artery disease status post bypass. 3. Ventricular tachycardia. 4. Hypertension. 5. Hyperlipidemia. 6. Hypothyroidism. 7. Diabetes mellitus. 8. GERD. 9. Depression. 10. Questionable obstructive sleep apnea. The patient does not wear a CPAP and has not had workup for this. PAST SURGICAL HISTORY: Permanent pacemaker, appendectomy, quadruple bypass. HOME MEDICATIONS: 1. Amiodarone 200 mg p.o. daily. 2. Aspirin 81 mg p.o. daily. 3. Citalopram 20 mg p.o. daily. 4. Furosemide 20 mg p.o. b.i.d. 5. Irbesartan 150 mg p.o. daily. 6. Levothyroxine 125 mcg p.o. daily. 7. Metformin 1000 mg p.o. b.i.d. 8. Metoprolol succinate 100 mg p.o. q.p.m. 9. Mexiletine 150 mg p.o. b.i.d. 10. Multivitamin/minerals 1 tab p.o. daily. 11. Omeprazole 40 mg p.o. daily. 12. Potassium chloride 8 mEq p.o. daily. 13. Saw palmet[place] fruit 450 mg p.o. b.i.d. DRUG ALLERGIES: INSULIN hypoglycemia; ACETAMINOPHEN; ASPIRIN; CAFFEINE; LISINOPRIL; CHARCOAL. FAMILY HISTORY: The patient has an extensive family history of heart disease. He notes that his brother at the age of 83 from heart failure related complications. He has 5 siblings total that are diseased due to heart problems. His dad at the age of 60 of an GA. Mom at the age of 78 from an GA. Brother had a CVA. There is family history of diabetes. SOCIAL HISTORY: The patient quit using tobacco in his 30s. Prior to that he smoked for approximately 13 years, 1 pack per day. He no longer uses alcohol stating that he quit at the age of 54 when his first GA occurred. 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 He lives with his of 55 years. They have 3 children together. In the event that he is unable to make his own medical decisions, he has appointed his Tootie Carmichael to be his surrogate decision maker. REVIEW OF SYSTEMS: A 10-point review of systems has been performed and all the pertinent positives and negatives are in the HPI. All other systems are negative. PHYSICAL EXAMINATION GENERAL: Mr. Carmichael is a well-developed, well-nourished, obese older white male who is sitting up in bed. He appears comfortable. He is cooperative and appropriate. He is in no acute distress. VITAL SIGNS: Temperature 97.8, temporal; heart rate 60; respiratory rate 20; oxygen saturation 94% on room air; blood pressure 135/88. HEENT: PERRL. EOMI. Nonicteric sclerae. Hearing grossly intact. Oral mucous membranes are moist. There are no lesions. The tongue is at midline. The pharynx is clear. The soft palate elevates symmetrically. RESPIRATORY: Symmetrical chest expansion. There is no use of accessory muscles. Lungs are clear to auscultation bilaterally without rhonchi, wheezes, or rubs. CARDIOVASCULAR: Distant heart sounds with a systolic murmur noted. S1, S2 present. There are no rubs, gallops, clicks. There is no appreciable JVD. There is no peripheral edema. Radial pulses are palpable. Pedal pulses are faint, but palpable. ABDOMEN: Obese, soft, nontender to palpation. Bowel sounds in all quadrants. MUSCULOSKELETAL: Full range of motion without pain or deformities. NEURO: The patient is awake. He is alert and oriented x3 with cranial nerves grossly intact. He is able to move all of his extremities with equal strength in upper and lower extremities. DIAGNOSTIC STUDIES AND LABORATORY DATA: HGB 10.1, HCT of 30, MCV 96. BUN 35, creatinine 1.98, glucose 198, magnesium 1.7. BNP greater than 1300. TSH 3.26. Urinalysis without gross abnormality. EKG shows paced rhythm with a rate of 70. Brain CT, impression: No acute intracranial abnormalities. Mild cerebral volume loss. Mild chronic small vessel ischemic disease is likely. Chronic left maxillary sinusitis. Chest x-ray, impression: No acute cardiopulmonary process by radiograph. Stable cardio mediastinal silhouette status post midline sternotomy and CABG. Left chest wall AICD. Unchanged elevation of the right hemidiaphragm. ASSESSMENT AND PLAN: Mr. Carmichael is a 79-year-old male with a past medical history of systolic heart failure, ejection fraction 20% to 25%, coronary artery disease status post bypass, ventricular tachycardia, who presented to the ER today after a syncopal episode which corresponds to episodes of ventricular tachycardia noted from interrogation of his device. The patient will be admitted to inpatient for: 1. Syncope. The patient presented to the ER by ambulance after a syncopal episode. His device was interrogated and episodes of ventricular tachycardia correspond to the time of syncopal episode. The patient is currently on antiarrhythmic medications for his ventricular tachycardia and he notes that he takes them regularly. His magnesium was noted to be 1.7 upon arrival to the ER. Potassium was within normal limits. The patient is noted to be on citalopram 20 daily. The patient will be admitted to the intensive care unit. He will have defibrillator pads in place during his stay. Cardiology has been consulted and notified. Dr. Nicole recommends continuation of the patient's home medications, amiodarone and mexiletine. We will keep his magnesium greater than 2 and potassium greater than 4. Magnesium has been repleted. He will be given a total of 3 g magnesium. We will slowly taper off citalopram. Dr. Nicole recommends that there may be a need to start amiodarone drip if the patient has another episode of ventricular tachycardia. He has not had an episode since arrival to the ER. 2. Acute kidney injury. The patient appears to have an acute kidney injury with a creatinine of 1.98, which is higher than his baseline, although his last measured creatinine was in January 2017. This may be due to his arrhythmia and hypoperfusion to kidneys. We will continue to monitor this. 3. Anemia. The patient appears to have a macrocytic anemia noted on blood work. His anemia appears to be chronic. He does not appear to have had a recent workup, so this will be performed. 4. Systolic heart failure. Continue home medications, furosemide, irbesartan, metoprolol. 5. Diabetes mellitus. Hold metoprolol in the setting of acute kidney injury. We will start the patient on insulin sliding scale. 6. Hypothyroidism. Continue levothyroxine. 7. Depression. The patient is noted to be on citalopram 20. This has a known side effect of QT prolongation. Discussion was had with the patient and he agrees to reduce the medication to 10 mg daily x3 days and then discontinue medication after that. The patient will then follow up with his primary care provider and monitor his symptoms of depression to decide if he needs to be started on another agent. 8. DVT prophylaxis, heparin. 9. Code status: Full code. TIME SPENT: Approximately 60 minutes were spent on this admission, greater than half the time was spent face to face with the patient obtaining history, performing physical, and reviewing the plan of care. The case has been reviewed with my attending Dr. Guzmán, who is in agreement with the plan of care. LONDON CRANDALL [id number]/CPS #: [id number] JOHN
[2019-04-16 04:42] LABS: ABS Eosinophils 0.1 10^3/ul (0-0.6); ABS Lymphocytes 0.9 10^3/ul (1.0-4.8); ABS Monocytes 0.7 10^3/ul (0-0.8); ABS Neutrophils 4.2 10^3/ul (1.5-7.7); Eosinophil % 1.4 %; Hematocrit 30 % (42-52); Hemoglobin 10.1 g/dL (14.0-18.0); Lymphocyte % 15.2 %; Mean Corpuscular HGB Conc 34 g/dL (31-36); Mean Corpuscular Hemoglobin 32 pg (27-31); Mean Corpuscular Volume 95 fL (80-94); Mean Platelet Volume 8.8 fL (7.4-10.4); Platelet Count 177 10^3/uL (150-450); Red Blood Count 3.15 10^6 /uL (4.18-5.48); Red Cell Distribution Width 17 % (10-15); White Blood Count 5.9 10^3/uL (3.5-10.8)
[2019-04-16 05:03] LABS: BUN/Creatinine Ratio 17.1 (8-20); Calcium 8.9 mg/dL (8.6-10.3); EGFR African American 42.4 (>60); Magnesium 2.2 mg/dL (1.9-2.7); Potassium 3.6 mmol/L (3.5-5.0)
[2019-04-16] MEDS: Levothyroxine TAB* 125 MCG TAB PO SCH (06:18)
[2019-04-16] MEDS: Heparin VIAL(*) 5000 UNITS/ML VIAL (FIVE THOUSAND) SUBCUT SCH ×3 (06:18→20:05)
[2019-04-16] MEDS ORDERED: Amiodarone TAB* 200 MG PO SCH (09:00)
[2019-04-16] MEDS: Multivitamins/Minerals TAB PO SCH (09:07)
[2019-04-16] MEDS: Losartan TAB* 25 MG PO SCH (09:07)
[2019-04-16] MEDS: Furosemide TAB* 40 MG PO SCH ×2 (09:07→19:52)
[2019-04-16] MEDS: Aspirin EC TAB* 81 MG TAB.EC PO SCH (09:07)
[2019-04-16] MEDS: Pantoprazole TAB * 40 MG TAB PO SCH (09:07)
[2019-04-16] MEDS: Citalopram TAB* 10 MG PO SCH (09:07)
[2019-04-16] MEDS: MEXILETINE 150 MG PO SCH ×2 (09:07→19:52)
[2019-04-16] MEDS: Insulin LISPRO* 1 UNITS UNIT SUBCUT SCH ×3 (09:35→18:08)
[2019-04-16] MEDS: Metoprolol Succinate XL TAB* 100 MG PO SCH (18:08)
--- NOTE | 2019-04-16 19:22 | PN ---
Subjective Date of Service: 04/16/19 Interval History: did well all day and all night last night. no cardiac events since admission. He was seen by cardiology and his pacer was re-programmed to capture and shock at earlier than his current setting. Please see Dr. Fish for full detail regarding his Pacer/AICD reprogramming Past Medical History: Unchanged from Admission Objective Active Medications: Amiodarone HCl (Cordarone Tab*) 200 mg PO DAILY [facility] Last Admin: 04/16/19 09:07 Dose: 200 mg Aspirin (Aspirin Ec Tab*) 81 mg PO DAILY [facility] Last Admin: 04/16/19 09:07 Dose: 81 mg Citalopram Hydrobromide (Celexa Tab*) 10 mg PO DAILY [facility] Stop: 04/18/19 09:01 Last Admin: 04/16/19 09:07 Dose: 10 mg Dextrose (Dextrose 50% Vial 50 Ml*) 25 ml IV PUSH .FOR FS < 60 - SS PRN PRN Reason: FS < 60 Furosemide (Lasix Tab*) 40 mg PO BID [facility] Last Admin: 04/16/19 09:07 Dose: 40 mg Heparin Sodium (Porcine) (Heparin Vial(*)) 5,000 units SUBCUT Q8HR [facility] Last Admin: 04/16/19 14:32 Dose: 5,000 units Insulin Human Lispro (Humalog*) 0 units SUBCUT AC [facility]; Protocol Last Admin: 04/16/19 18:08 Dose: 2 units Levothyroxine Sodium (Synthroid Tab*) 125 mcg PO 0600 [facility] Last Admin: 04/16/19 06:18 Dose: 125 mcg Losartan Potassium (Cozaar Tab*) 50 mg PO DAILY [facility] Last Admin: 04/16/19 09:07 Dose: 50 mg Metoprolol Succinate (Toprol Xl Tab*) 100 mg PO QPM [facility] Last Admin: 04/16/19 18:08 Dose: 100 mg Mexiletine HCl (Mexitil Cap*) 150 mg PO BID [facility] Last Admin: 04/16/19 09:07 Dose: 150 mg Multivitamins/Minerals (Theragran/Minerals Tab*) 1 tab PO DAILY [facility] Last Admin: 04/16/19 09:07 Dose: 1 tab Pantoprazole Sodium (Protonix Tab*) 40 mg PO DAILY [facility] Last Admin: 04/16/19 09:07 Dose: 40 mg Vital Signs - 8 hr 04/16/19 04/16/19 04/16/19 12:00 13:00 14:00 Temperature Pulse Rate 60 61 Respiratory 15 17 19 Rate Blood Pressure 132/73 123/72 (mmHg) O2 Sat by Pulse 95 93 Oximetry 04/16/19 04/16/19 04/16/19 14:01 14:43 15:00 Temperature Pulse Rate 60 77 61 Respiratory 18 18 18 Rate Blood Pressure 105/58 126/77 113/59 (mmHg) O2 Sat by Pulse 94 97 96 Oximetry 04/16/19 04/16/19 04/16/19 15:01 15:19 16:00 Temperature 97.9 F Pulse Rate 62 60 Respiratory 16 23 Rate Blood Pressure 99/61 (mmHg) O2 Sat by Pulse 96 98 Oximetry 04/16/19 04/16/19 04/16/19 17:00 18:00 19:00 Temperature Pulse Rate 60 61 60 Respiratory 20 19 17 Rate Blood Pressure 121/59 125/81 (mmHg) O2 Sat by Pulse 96 97 97 Oximetry 04/16/19 19:01 Temperature Pulse Rate 60 Respiratory 21 Rate Blood Pressure 110/66 (mmHg) O2 Sat by Pulse 96 Oximetry Oxygen Devices in Use Now: None Appearance: awake, alert. no distress Eyes: No Scleral Icterus Ears/Nose/Mouth/Throat: NL Teeth, Lips, Gums, Mucous Membranes Moist Neck: NL Appearance and Movements; NL JVP, Trachea Midline Respiratory: Symmetrical Chest Expansion and Respiratory Effort, Clear to Auscultation Cardiovascular: NL Sounds; No Murmurs; No JVD, RRR Abdominal: NL Sounds; No Tenderness; No Distention Neurological: Alert and Oriented x 3 Result Diagrams: 04/16/19 04:30 04/16/19 04:30 Microbiology and Other Data: Microbiology 04/15/19 19:46 Nasal Screen MRSA (PCR) - Final Nasal Mrsa Not Detected Assess/Plan/Problems-Billing Assessment: 79 y/o male admitted for syncope secondary to Sustained V-Tach at home. - Patient Problems (1) Syncope and collapse Current Visit: Yes Status: Acute Code(s): R55 - SYNCOPE AND COLLAPSE SNOMED Code(s): 679940573 Comment: - secondary to sustained V-Tach - His AICD reprogrammed to capture and shock earlier than his current setting - increase amiodarone to 400 mg daily (from 200 mg ) for one months - Follow up with Dr. Santoro in one month - decreased celexa to 10 mg daily (2) Ventricular tachycardia Current Visit: Yes Status: Acute Code(s): I47.2 - VENTRICULAR TACHYCARDIA SNOMED Code(s): 53438280 Comment: - secondary to sustained V-Tach - His AICD reprogrammed to capture and shock earlier than his current setting - increase amiodarone to 400 mg daily (from 200 mg ) for one months - Follow up with Dr. Santoro in one month (3) Chronic systolic CHF (congestive heart failure) Current Visit: No Status: Acute Code(s): I50.22 - CHRONIC SYSTOLIC ( CONGESTIVE) HEART FAILURE SNOMED Code(s): 967807814 Comment: with EF reported in the past at 25% continue lasix 40 mg bid. - Diet control.
[2019-04-16] MEDS ORDERED: Amiodarone TAB* 200 MG ONE (19:47)
--- NOTE | 2019-04-16 20:26 | CONS ---
CC: Dr. Niels Santoro; Dr. Davis; Dr. Mik Maurer; Hospitalist Service * CARDIOLOGY CONSULTATION: DATE OF CONSULT: 04/16/19 REASON FOR CONSULT: Syncope and ventricular tachycardia. CHIEF COMPLAINT: Losing consciousness. HISTORY OF PRESENT ILLNESS: Mr. Carmichael is a 79-year-old gentleman followed by my partner, Dr. Santoro, for an ischemic cardiomyopathy with a biventricular ICD and he also sees Dr. Davis in [place]. The patient states he was feeling fine yesterday without any problems and walked out to the mailbox, and walking back, he suddenly found himself on the ground. ICD interrogation was done yesterday and I do not have the full report of the download. I did verbally talk with the pacer rep and noted that he had multiple ventricular tachycardic episodes, no VF episodes, but was unable to find or review the intracardiac electrograms. According to the [employer] rep, who had reviewed them during the download, he had had multiple ventricular tachycardic events, some successfully terminated with ramp and burst pacing. He felt the ramp pacing was better. The patient denies any awareness of dysrhythmias. No palpitations or pounding of the heart and he received no defibrillator shocks. The patient says he has been taking his medications regularly. He denies orthopnea, PND, or chest pain. PAST MEDICAL HISTORY: The patient has a past medical history of: 1. Coronary artery disease (cath in 2016 showed all 3 major vessels occluded, patent RODNEY to the LAD, saphenous vein graft to D1 patent and saphenous vein graft to OM1 and OM2 occluded, saphenous vein graft to the PDA occluded). 2. Severe ischemic cardiomyopathy, ejection fraction less than 20% in 2017. 3. Biventricular ICD implanted in 2017. 4. Diabetes. 5. Hypertension. 6. Ventricular tachycardia. 7. Thyroid disease, on replacement. MEDICATIONS: Outpatient medications included: 1. Metformin 1500 mg b.i.d. 2. Aspirin 81 mg a day. 3. Lasix 80 mg a day. 4. Toprol-XL 100 mg a day. 5. Irbesartan 150 mg a day. 6. Amiodarone 200 mg a day. 7. Mexiletine 150 mg b.i.d. 8. Potassium chloride 8 mEq a day. 9. MultiVites. 10. Saw Switchcam 450 b.i.d. 11. Citalopram 20 mg a day. 12. Levothyroxine 75 mcg a day. ALLERGIES: Include LISINOPRIL, LIPITOR, CHARCOAL, and INSULIN. FAMILY HISTORY: Positive for extensive atherosclerotic disease, brother at age 83 with CHF, 5 siblings who of heart problems. His father at age 60 of a myocardial infarction. Mother at age 78 of an NM. Another brother with a stroke. 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 Stopped smoking in his 30s, has a 13-pack year history. No history of alcohol abuse or recreational drug use currently. REVIEW OF SYSTEMS: Negative for orthopnea, PND, increased weight, change in bowel or bladder habits, fevers, chills, sweats. No recent travel. No change in medications. No missed meds. No [id number] meds. DIAGNOSTIC STUDIES/LAB DATA: Brain CT from 04/15/19 showed mild volume loss and small vessel disease. No acute findings. Chest x-ray from 04/15/19 showed elevated right hemidiaphragm. No acute cardiopulmonary process. EKG on arrival shows dual-chamber pacing, morphology of QRS is consistent with biventricular pacing. ICD interrogation today confirms he has a [employer] Viva quad S FINISHED CLOTH CHECKER-D, serial number [id number]. He was programmed in dual-chamber rate response mode with a lower rate of 60 beats per minute, upper tracking rate of 100 beats per minute, and he is biventricularly pacing 100%. For tachy programming, VT zone is 115 to 188 beats per minute. He had 2 bursts , 2 ramps. There are ATP therapies followed by 35 joules 4 times. For VF, he had ATP during charging followed six 35 joules defibrillator. For VT episodes, see history of present illness for details. The patient's OptiVol index has increased this summer progressively starting the last week of January and is the highest it has been since February of 2018. Labs: White count 5.9, hematocrit 30, platelets 177 (hematocrit 33 in August 2016, 38 in January 2017). Sodium 138, potassium 3.6, chloride 101, bicarb 28, BUN 32, creatinine 1.9, glucose 147, lactic acid 1.9, calcium 8.9, magnesium 1.7. BNP of greater than 1300 (in August 2016, it was 2078). TSH 3.26. Urinalysis: Specific gravity 1.009, nitrite negative, leukocyte esterase negative. Toxicology was negative for all substances tested. Troponin 0.01. IMPRESSION AND PLAN: In summary, Mr. Carmichael is a 79-year-old gentleman with severe ischemic cardiomyopathy who has shown progressive increase in OptiVol index indicating progressive increase in congestive heart failure in February and March. He then was walking to the mailbox yesterday and fainted and interrogation revealed he was having multiple episodes of ventricular tachycardia, not all of which were responding to the anti-tachycardia pacing therapy and I feel this is the reason that he lost consciousness. Going forward, to minimize ventricular tachycardia, we need to optimize his congestive heart failure. We can talk to the patient about diet again. It is possible that over this summer he has inadvertently been eating more salty foods. Potential future modifications of his regimen would include converting irbesartan to Entresto and stopping or lowering metformin and initiation of Jardiance or other SGLT2 inhibitor. Additionally, he could be converted from metoprolol to Coreg which might improve his failure, but may worsen his amount of ventricular tachycardia. The potential for adjusting his cardiac medications and Entresto would be performed as an outpatient, not an inpatient. To minimize the chance of recurrent syncope if more ventricular tachycardia, I discussed with Dr. Davis reprogramming options and he now has 1 ramp pacing followed by defibrillating in the ventricular tachycardia zone. The patient has been informed of this and this could potentially be modified or fine-tuned as an outpatient. The patient is understanding and is aware that he would be more prone to shocks and understands the purpose of this as he has no warning and we do not want to risk syncope in a dangerous situation. Potassium and magnesium have been repleted. The patient should follow up with Dr. Santoro and Dr. Maurer soon to follow up on potential changes for his diabetic medications as well as his congestive heart failure regimen and reevaluate burden of ventricular tachycardia. Additionally, to minimize recurrent ventricular tachycardia, I am going to increase his amiodarone from 200 to 400 mg a day for a month and leave his mexiletine at his current dose. Thank you for allowing me to assist in this nice gentleman's care. [id number]/[facility] #: [id number] [facility]
[2019-04-16] MEDS ORDERED: Potassium Chlor TAB* 20 MEQ TAB.ER PO ONE (20:30)
[2019-04-16] MEDS ORDERED: Amiodarone TAB* 200 MG PO ONE (20:30)
[2019-04-17] MEDS ORDERED: Acetaminophen TAB* 325 MG PO PRN (03:58)
[2019-04-17] MEDS: Heparin VIAL(*) 5000 UNITS/ML VIAL (FIVE THOUSAND) SUBCUT SCH (05:13)
[2019-04-17] MEDS: Levothyroxine TAB* 125 MCG TAB PO SCH (05:13)
[2019-04-17 08:09] VITALS: BP 127/73
[2019-04-17] MEDS: Insulin LISPRO* 1 UNITS UNIT SUBCUT SCH (08:49)
[2019-04-17] MEDS: Losartan TAB* 25 MG PO SCH (08:50)
[2019-04-17] MEDS: Multivitamins/Minerals TAB PO SCH (08:51)
[2019-04-17] MEDS: Aspirin EC TAB* 81 MG TAB.EC PO SCH (08:51)
[2019-04-17] MEDS: Citalopram TAB* 10 MG PO SCH (08:51)
[2019-04-17] MEDS: Furosemide TAB* 40 MG PO SCH (08:51)
[2019-04-17] MEDS: Pantoprazole TAB * 40 MG TAB PO SCH (08:52)
[2019-04-17] MEDS: MEXILETINE 150 MG PO SCH (08:52)
[2019-04-17] MEDS ORDERED: Amiodarone TAB* 400 MG PO SCH (09:00)
--- NOTE | 2019-04-17 13:27 | DS ---
CC: Dr. Inge Varner; Dr. Niels Santoro; Dr. Mik Maurer DISCHARGE SUMMARY: DATE OF ADMISSION: 04/15/19 DATE OF DISCHARGE: 04/17/19 FINAL DISCHARGE DIAGNOSES: 1. Syncope secondary to ventricular tachycardia. 2. History of cardiomyopathy with decreased ejection fraction of 20% in 2017. 3. History of biventricular ICD placement in 2017. 4. History of coronary artery disease, 3-vessel disease, status post cath in 2016. 5. Diabetes mellitus. 6. Hypertension. 7. Hypothyroidism. HOSPITAL COURSE: The patient was admitted to the hospitalist service on after he presented to the emergency room secondary to syncope while he was walking from his mailbox home. He was brought into the ER. He was found to have on his device interrogation several episodes of ventricular tachycardia, time was around 1:48, then around 2:20, 2:21 and 2:22. Therefore, he was admitted to the medical service, was admitted to ICU. He was placed on ongoing tele monitoring. Cardiology consultation was obtained. The patient was seen and evaluated by Dr. Varner and she did the interrogation and reprogramming at bedside after consulting with Dr. Davis and for further details regarding the reprogramming, please refer to her detailed consultation. As outlined, to minimize his ventricular tachycardia, now he is programmed to 1 ramp pacing followed by defibrillation in the ventricular tachycardia zone. Also, I discussed the case with Dr. Varner at bedside and she did recommend to increase amiodarone from 200 to 400 mg daily for 1 month and continue the same dose of his current secondary antiarrhythmic drug mexiletine at 150 b.i.d. with no changes and then to arrange followup with Dr. Santoro within a month while he is on the amiodarone to discuss other medical options if necessary. Also, it was noted during the interrogation that the patient is potentially having evidence of heart failure and her recommendation was to potentially consider as an outpatient changing metformin to Jardiance and implementation of possible Entresto; however, this can be discussed further during routine followup with his drawing operator as an outpatient. The patient was seen late in the evening on 04/16/19 and he was kept overnight in the hospital and kept on the monitoring and he was seen and evaluated this morning. He had no further issue, no incidence of any ventricular tachycardia; therefore, I deemed the patient for discharge with implementation of Dr. Varner's recommendations. PHYSICAL EXAMINATION: Vital Signs: Temperature 98.2, pulse 62, respiratory rate 24, satting 97%, blood pressure 127/73. Generally, he is awake, alert, oriented. Head and Neck: Normocephalic, atraumatic, supple. Lungs: Clear to auscultation bilateral. Abdomen: Positive bowel sounds. Soft, nontender, nondistended. Extremities: No pedal edema. DIAGNOSTIC STUDIES/LAB DATA: CBC unremarkable, with slightly chronic anemia with hemoglobin 10.1 and hematocrit 30. Chemistry: Potassium was slightly low at 3.6, which was supplemented by oral supplementation. Magnesium of 2.2. Urinalysis unremarkable. Diagnostic studies: He had a CT brain secondary to his syncope on admission in the ER, which did not show any acute abnormality. No cerebral volume loss. He had a chest x-ray on 04/15/19, reveals no acute cardiopulmonary disease. DISCHARGE MEDICATIONS: 1. Tylenol p.r.n. 2. Amiodarone 400 mg daily for 1 month and follow up with Dr. Santoro within a month for further recommendation. 3. Aspirin 81 mg daily. 4. Citalopram was decreased from 20 mg down to 10 mg due to the risk of possible QT prolongation, which may put him at high risk for tachycardia and I did advise the patient to discuss with PCP, consider titration off if feasible. 5. Continue Lasix 40 mg b.i.d. 6. Avapro 150 mg daily. 7. Levothyroxine 125 mcg daily. 8. Toprol-XL 100 mg daily. 9. Mexitil 150 b.i.d. continue. 10. Multivitamin daily. 11. Omeprazole 40 daily. 12. Potassium. Given his potassium of 3.6 on presentation and his ventricular tachycardia, I would recommend to increase it to 20 mEq b.i.d. and outpatient followup for his electrolytes with a BMP in about 1 to 2 weeks during the appointment to follow up with PCP to ensure his potassium remains stable. 13. Mahamed cloud, continue 400 mg b.i.d. DISCHARGE INSTRUCTIONS: 1. Follow up with his primary care, Dr. Mik Maurer, in 4 to 7 days and to please have a BMP shortly pre or post followup to ensure normal electrolytes specifically with a change of his potassium. 2. Follow up with Dr. Santoro in about 1 month to further recommend regarding his antiarrhythmic drug amiodarone and consideration of probably implementing and maximizing his medical therapy as suggested by Dr. Varner, Jardiance versus metformin, and as well possible Entresto. DISCHARGE CONDITION: STABLE DISCHARGE DISPOSITION: HOME [id number]/[facility] #: [id number] [facility]
== END 2019-04-17 11:30 | disposition home or self-care (01) ==
LOC: ED 15:31 → ICU 18:43 → MEDTELE 04-16 20:20
PROVIDERS: ADMIT Internal Medicine; ATTEND Internal Medicine
DX: R55 Syncope and collapse (principal); I47.2 Ventricular tachycardia; I42.9 Cardiomyopathy, unspecified; I50.22 Chronic systolic (congestive) heart failure; Z95.810 Presence of automatic (implantable) cardiac defibrillator; I25.10 Atherosclerotic heart disease of native coronary artery without angina pectoris; Z95.5 Presence of coronary angioplasty implant and graft; E11.9 Type 2 diabetes mellitus without complications; I10 Essential (primary) hypertension; E03.9 Hypothyroidism, unspecified; Z79.82 Long term (current) use of aspirin; Z79.899 Other long term (current) drug therapy; K21.9 Gastro-esophageal reflux disease without esophagitis; E78.5 Hyperlipidemia, unspecified; F32.9 Major depressive disorder, single episode, unspecified; Z87.891 Personal history of nicotine dependence; N17.9 Acute kidney failure, unspecified; D64.9 Anemia, unspecified
CPT/HCPCS: 36415; 70450; 71046; 80048; 80053; 80307; 80320; 81003; 83605; 83735; 83880; 84443; 84484; 85025; 87641; 93005; 96365; 96366; 96372; 99285; A9270-GY; G0378; G0480; J1644; J3475